=== PATIENT | female | born 1940 | race Caucasian/White ===

== ENCOUNTER 2021-01-22 11:15 | Outpatient (RCR) | payer MEDICARE, SELFPAY ==
[2021-01-08 10:17] VITALS: BP 136/76; PULSE 98; TEMP 36.5
--- NOTE | 2021-01-08 16:52 | PCM.WC.HP ---
History of Present Illness Date of Service: 01/08/21 Chief Complaint: Right Lower Extremity Ulcers History of Wound: Ms. Kwong is a 80 yo who was referred to the wound center by her clinical project leader due to nonhealing right lower extremity ulcers. Initially noted in August, denies any known precipitating factor however, has had problematic right lower extremity swelling for months. Was given a prescription for compression stockings however has had difficulty wearing it. She states that she has been applying antibiotic ointment to the ulcers otherwise has left it open to air. History of diabetes mellitus which is said to be well controlled. She feels well otherwise and denies chills, fever, nausea, vomiting or change in bowel habit. [facility] Medical History (Updated 01/08/21 @ 17:[address] Alissa Hardin MD) Edema of right lower extremity Type 2 diabetes mellitus Ulcer of right lower extremity with fat layer exposed Home Medications Eliquis 5 BID 01/08/21 [History Last Taken Unknown] Potassium-99 BID 01/08/21 [History Last Taken Unknown] albuterol sulfate [ProAir HFA] 1 puff INHALATION Q6H 01/08/21 [History Last Taken Unknown] allopurinol 300 mg PO DAILY 01/08/21 [History Last Taken Unknown] budesonide-formoterol [Symbicort] 2 puff INHALATION BID 01/08/21 [History Last Taken Unknown] diclofenac sodium-menthol NOTE Q6H 01/08/21 [History Last Taken Unknown] doxycycline monohydrate 100 mg PO BID 01/08/21 [History Last Taken Unknown] gabapentin 600 mg PO DAILY 01/08/21 [History Last Taken Unknown] glipizide-metformin 1 tab PO DAILY 01/08/21 [History Last Taken Unknown] levothyroxine 200 mcg PO DAILY 01/08/21 [History Last Taken Unknown] torsemide TID 01/08/21 [History Last Taken Unknown] Allergy/AdvReac Type Severity Reaction Status Date / Time acetaminophen [From Vicodin] Allergy Other Verified 01/08/21 11:56 codeine Allergy Vomiting Verified 01/08/21 11:49 heparin Allergy Hives Verified 01/08/21 11:51 hydrocodone [From Vicodin] Allergy Other Verified 01/08/21 11:56 Penicillins Allergy Hives Verified 01/08/21 11:50 Sulfa (Sulfonamide Allergy Itching Verified 01/08/21 11:47 Antibiotics) ROS Constitutional Constitutional: Denies body ache(s), change in weight, fatigue, fever(s) or frequent falls Eyes Eyes: Denies blindness, bloody eye, blurry vision, change in eye color or change in vision ENT HEENT: Denies bleeding gums, change in voice, dental pain, dysphagia, ear discharge or ear pain Cardiovascular Cardiovascular: Denies abdominal bloating, abdominal edema, abdominal pain, chest pain with activity or dyspnea at rest Respiratory/Chest Respiratory/Chest: Denies change in mental status, change in phlegm color, chest congestion, difficulty clearing secretions, hemoptysis or hoarseness Gastrointestinal Gastrointestinal: Denies abdominal pain, anorexia, belching, bloating, change in bowel habits or chewing difficulty Genitourinary Genitourinary: Denies abdominal discomfort, burning urination, dribbling or dysuria Musculoskeletal Musculoskeletal: Denies deformity, difficulty walking, joint stiffness, muscle spasms or muscle weakness Integumentary Integumentary: Denies change in hair, change in pigmentation, erythema, furuncle, hirsutism, jaundice or lesions Neurologic Neurologic: Denies abnormal hearing, abnormal movements, abnormal speech, burning sensations or confusion Psychiatric Psychiatric: Denies anxiety, auditory hallucinations, difficulty concentrating, hallucinations, homicidal ideation or hopelessness Endocrine Endocrinology: Denies excessive sweating, fatigue, flushing, heat intolerance, increase in ring/shoe/hat size or palpitations Hematologic/Lymphatic Hematologic/Lymphatic: Denies anemia, easy bleeding, easy bruising or lymphadenopathy Allergic/Immunologic Allergic/Immunologic: Denies tongue swelling, hives, urticaria, eczemia or wheezing Vital Signs Vital Signs Vital Signs: 01/08/21 10:17 Temperature 97.7 F L Temperature Source Temporal Pulse Rate 98 Blood Pressure 136/76 H Blood Pressure Mean 96 Blood Pressure Source Monitor Blood Pressure Position Semi-Fowlers Blood Pressure Location Left Arm Physical Exam Const alert, oriented x3 and no apparent distress General Appearance: cooperative and comfortable HEENT normocephalic and head/scalp atraumatic Neck full ROM and supple General: normal visual inspection Resp normal respiratory effort Effort and Inspection: able to speak in complete sentences Skin Wounds: wounds noted Neuro oriented x3 and CN's II-XII intact bilaterally Sensorium / Orientation: awake, alert and oriented to person Psych mental status grossly normal Appearance: grossly normal Attitude: calm Activity / Motor Behavior: appropriate eye contact Debridement Note Debridement Note Post-Debridement Measurements and Additional Note: Post-Debridement Measurements/Treatment - Nurse 1 - General Ulcer Assessment Start: 01/08/21 09:55 Freq: Status: Active Protocol: ROSE Activity Type Activity Date Activity User E-Sign Co-Sign Detail Recorded Client Recorded Date Recorded By Document 01/08/21 10:17 GABRIELA [id number] 01/08/21 10:36 GABRIELA 01/08/21 10:17 - Today's Visit Information Type of service Initial Visit Arrival Mode Wheelchair Patient Identification Verified (Name & Yes ) Vital Signs Temperature (97.8 F-99.1 F) 97.7 F L Temperature Source Temporal Pulse Rate (60-100) 98 Pulse Location Monitor Blood Pressure (90/60-120/80) 136/76 H Blood Pressure Mean 96 Source Monitor Position Semi-Fowlers Blood Pressure Location Left Arm History Since Last Visit- (Skip if this is Patient's initial visit) Have you changed medications since your No last visit? Any new allergies or adverse reactions No Had a fall/change in ADL's that may No increase risk of falls Signs or symptoms of abuse and/or No neglect since last visit Have you been in the hospital since your No last visit? Has dressing in place as prescribed No Has compression in place as prescribed N/A Has offloadiing in place as prescribed N/A Experienced any changes in pain level or No management Left Footwear Regular Shoe Right Footwear Regular Shoe Pain Scale: 0-10 Numeric Is Patient Pain Free? Yes - Nurse 1 - General Ulcer Measurement Start: 01/08/21 09:55 Freq: Status: Active Protocol: Activity Type Activity Date Activity User E-Sign Co-Sign Detail Recorded Client Recorded Date Recorded By Document 01/08/21 10:17 KR [id number] 01/08/21 10:36 GABRIELA 01/08/21 10:17 Wound Center Nurse 1 #3 R Calf -Current Size (cm) - Length 1.8 -Current Size (cm) - Width 1.4 -Current Size (cm) - Depth 0.1 -Total Square Cm 2.52 -Exudate Amt Small -Exudate Type Serosanguineous -Wound Margin Distinct, Outline Attached -Granulation Amt None Present (0 %) -Necrosis Amt Small (1-33%) -Necrotic Tissue Type Adherent Slough -Texture (Richelle-wound Skin Appearance) Assessed, Scarring -Moisture (Richelle-wound Skin Appearance) No Abnormality, Assessed, Maceration -Color (Richelle-wound Skin Appearance) No Abnormality, Assessed -Temperature (Richelle-wound Skin No Abnormality Appearance) (Pt Warm) -Tenderness on Palpation (Richelle-wound No Skin Appearance) -Ulcer Cleansing Rinsed/ Irrigated with Saline -Foul Odor after Cleansing No -Anesthetic Used 5% Lidocaine Gel #2 R medial LE -Current Size (cm) - Length 5.8 -Current Size (cm) - Width 1.9 -Current Size (cm) - Depth 0.1 -Total Square Cm 11.02 -Exudate Amt Small -Exudate Type Serosanguineous -Wound Margin Distinct, Outline Attached -Necrosis Amt Large (67-100%) -Necrotic Tissue Type Adherent Slough -Texture (Richelle-wound Skin Appearance) Assessed, Scarring -Moisture (Richelle-wound Skin Appearance) No Abnormality, Assessed -Color (Richelle-wound Skin Appearance) No Abnormality, Assessed -Temperature (Richelle-wound Skin No Abnormality Appearance) (Pt Warm) -Tenderness on Palpation (Richelle-wound No Skin Appearance) -Ulcer Cleansing Rinsed/ Irrigated with Saline -Foul Odor after Cleansing No -Anesthetic Used 5% Lidocaine Gel #1 R Ankle -Current Size (cm) - Length 1.7 -Current Size (cm) - Width 1 -Current Size (cm) - Depth 0.1 -Total Square Cm 1.7 -Exudate Amt Small -Exudate Type Yellow/Green -Wound Margin Distinct, Outline Attached -Granulation Amt None Present (0 %) -Necrosis Amt Small (1-33%) -Necrotic Tissue Type Adherent Slough -Texture (Richelle-wound Skin Appearance) Assessed, Localized Edema ,Scarring -Moisture (Richelle-wound Skin Appearance) No Abnormality, Assessed -Color (Richelle-wound Skin Appearance) No Abnormality, Assessed -Temperature (Richelle-wound Skin No Abnormality Appearance) (Pt Warm) -Tenderness on Palpation (Richelle-wound No Skin Appearance) -Ulcer Cleansing Rinsed/ Irrigated with Saline -Foul Odor after Cleansing No -Anesthetic Used 5% Lidocaine Gel Right Calf (cm) 53 Right Ankle (cm) 32 Left Calf (cm) 46 Left Ankle (cm) 28 WC - Nurse 2 - General Ulcer CM Notes Start: 01/08/21 09:55 Freq: Status: Active Protocol: Activity Type Activity Date Activity User E-Sign Co-Sign Detail Recorded Client Recorded Date Recorded By Document 01/08/21 11:07 MW [id number] 01/08/21 11:20 MW 01/08/21 11:07 Wound Center Nurse 2 #3 R Calf -Time 11:08 -Correct Patient Yes -Correct Side, Site, Position Yes -Correct Procedure Yes -Procedure Performed Yes -Type of Procedure Debridement -Clinical Debridement Subcutaneous -Tissue Removed Subcutaneous -Post Debridement (cm) - Length 2.0 -Post Debridement (cm) - Width 1.3 -Post Debridement (cm) - Depth 0.1 -Total Square (Post) (cm) 2.60 -Area of Debridement (cm) - Length 2.0 -Area of Debridement (cm) - Width 1.3 -Total Square (Area) (cm) 2.60 -Tunneling No -Undermining/Tunneling No -Circular Undermining No -Wound/Ulcer Outcome Not Healed -Ulcer Cleansing Rinsed/ Irrigated with Saline -Foul Odor after Cleansing No -Bioengineered Tissue No -Bleeding Controlled with Pressure -Offloading No -Treatment Response Procedure Tolerated Well -Debridement - Subq, 1st 20sq cm Yes #2 R medial LE -Time 11:09 -Correct Patient Yes -Correct Side, Site, Position Yes -Correct Procedure Yes -Procedure Performed Yes -Type of Procedure Debridement -Clinical Debridement Subcutaneous -Tissue Removed Subcutaneous -Post Debridement (cm) - Length 6.0 -Post Debridement (cm) - Width 3.0 -Post Debridement (cm) - Depth 0.1 -Total Square (Post) (cm) 18.00 -Area of Debridement (cm) - Length 6.0 -Area of Debridement (cm) - Width 3.0 -Total Square (Area) (cm) 18.00 -Tunneling No -Undermining/Tunneling No -Circular Undermining No -Wound/Ulcer Outcome Not Healed -Ulcer Cleansing Rinsed/ Irrigated with Saline -Foul Odor after Cleansing No -Bioengineered Tissue No -Bleeding Controlled with Pressure -Offloading No -Treatment Response Procedure Tolerated Well -Debridement - Subq, 1st 20sq cm No #1 R Ankle -Time 11:09 -Correct Patient Yes -Correct Side, Site, Position Yes -Correct Procedure Yes -Procedure Performed Yes -Type of Procedure Debridement -Clinical Debridement Subcutaneous -Tissue Removed Subcutaneous -Post Debridement (cm) - Length 1.0 -Post Debridement (cm) - Width 0.8 -Post Debridement (cm) - Depth 0.1 -Total Square (Post) (cm) 0.80 -Area of Debridement (cm) - Length 1.0 -Area of Debridement (cm) - Width 0.8 -Total Square (Area) (cm) 0.80 -Tunneling No -Undermining/Tunneling No -Circular Undermining No -Wound/Ulcer Outcome Not Healed -Ulcer Cleansing Rinsed/ Irrigated with Saline -Foul Odor after Cleansing No -Bioengineered Tissue No -Bleeding Controlled with Pressure -Offloading No -Treatment Response Procedure Tolerated Well -Debridement - Subq, 1st 20sq cm No Pain Scale: 0-10 Numeric Is Patient Pain Free? Yes - Nurse 3 - General Ulcer D/C NN Start: 01/08/21 09:55 Freq: Status: Active Protocol: Activity Type Activity Date Activity User E-Sign Co-Sign Detail Recorded Client Recorded Date Recorded By Document 01/08/21 11:24 DL [id number] 01/08/21 11:34 DL 01/08/21 11:24 Wound Care Nurse 3 #3 R Calf -Ulcer Cleansing Rinsed/ Irrigated with Saline -Foul Odor after Cleansing No -Primary Dressing Applied Aquacel AG 4x4 -Primary Dressing Covered/Secured with Dry Gauze, Secured with Tape -Aquacel AG 4x4 1 #2 R medial LE -Ulcer Cleansing Rinsed/ Irrigated with Saline -Primary Dressing Covered/Secured with Dry Gauze, Secured with Tape #1 R Ankle -Ulcer Cleansing Rinsed/ Irrigated with Saline -Primary Dressing Covered/Secured with Dry Gauze, Secured with Tape Right -Tubular Bandage Double Layer -Size of Tubigrip Used Size F -Size F ($) 2 Pain Scale: 0-10 Numeric Is Patient Pain Free? Yes WC - Visit Discharge Discharge Condition Stable Ambulatory Status Wheelchair Transportation Private Auto Accompanied by Wound debrided: Rught ankle ( Lateral ) Anesthesia Used: 5% Lidocaine Gel Depth: Down to and including healthy tissue and in the subcutaneous layer Percentage of wound debrided: 100 Instrument Used: 5mm curette Tissue Removed: Slough and devitalized tissue Severity: Fat Layer Exposed Amount of bleeding with debridement: Mild Bleeding Controlled with: Pressure Patient tolerated procedure: Patient tolerated procedure well Additional Wound Wound debrided: Right lower extremity ( Cluster ) Type of Debridement: Excisional debridement Anesthesia Used: 5% Lidocaine Gel Depth: Down to and including healthy tissue and in the subcutaneous layer Percentage of wound debrided: 100 Instrument Used: 5mm curette Tissue Removed: Slough and devitalized tissue Severity: Fat Layer Exposed Amount of bleeding with debridement: Mild Bleeding Controlled with: Pressure Patient tolerated procedure: Patient tolerated procedure well Additional Wound Wound debrided: Right lower extremity ( Posterior ) Type of Debridement: Excisional debridement Anesthesia Used: 5% Lidocaine Gel Depth: Down to and including healthy tissue and in the subcutaneous layer Percentage of wound debrided: 100 Instrument Used: 5mm curette Tissue Removed: Slough and devitalized tissue Severity: Fat Layer Exposed Amount of bleeding with debridement: Mild Bleeding Controlled with: Pressure Patient tolerated procedure: Patient tolerated procedure well Lab / Micro Data Micro: Microbiology 01/08/21 11:15 Wound Abcess - Leg, Right Gram Stain - Final Charges/Coding Visit Charges Office Visits / Consults: [id number] OV L4 New Procedures Integumentary [id number]: [id number] Marie subq tissue 20 sq cm/< Assessment/Plan Assessment/Plan (1) Ulcer of right lower extremity with fat layer exposed: CODE(S): L97.912 - Non-pressure chronic ulcer of unspecified part of right lower leg with fat layer exposed (2) Edema of right lower extremity: CODE(S): R60.0 - Localized edema (3) Type 2 diabetes mellitus: CODE(S): E11.9 - Type 2 diabetes mellitus without complications PLAN: 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 Right lower extremity edema as well. Evidence of stasis dermatitis. Debridement done as documented above, procedure was well-tolerated. Cultures taken. She states that her blood glucose readings have been within normal. Reports compliance with her diabetes management/medication. Aquacel extra daily with Adaptic over top. Double layer Tubigrip for edema management. Elevate lower extremities when seated and in bed. Optimal diabetes control again recommended. Increase intake of protein rich foods, vitamin C and zinc. Recently had venous studies, will request records. Her questions were answered and she was advised to call with any further questions or concerns. This note was generated with [employer] software. It may contain incorrect words, spelling, and punctuation that were not noted in checking the note before signing.
[2021-01-15 11:18] VITALS: BP 89/63; PULSE 68; RESP 22; TEMP 36.2
--- NOTE | 2021-01-15 13:32 | PN.PCM_ITS ---
History of Present Illness Date of Service: 01/15/21 Chief Complaint: Right Lower Extremity Ulcers History of Wound: Ms. Kwong is a 80 yo who was referred to the wound center by her gatekeeper due to nonhealing right lower extremity ulcers. Initially noted in August, denies any known precipitating factor however, has had problematic right lower extremity swelling for months. Was given a prescription for compression stockings however has had difficulty wearing it. She states that she has been applying antibiotic ointment to the ulcers otherwise has left it open to air. History of diabetes mellitus which is said to be well controlled. She feels well otherwise and denies chills, fever, nausea, vomiting or change in bowel habit. Subjective Subjective No new concerns at this time. Improving ulcers. Objective Data Objective Data Vital Signs: Vital Signs Temp Pulse Resp BP 97.2 F L 68 22 H 89/63 L 01/15/21 11:18 01/15/21 11:18 01/15/21 11:18 01/15/21 11:18 Lab / Micro Data Micro: Microbiology 01/08/21 11:15 Wound Abcess - Leg, Right Gram Stain - Final 01/08/21 11:15 Wound Abcess - Leg, Right Wound Culture - Final Staphylococcus epidermidis 01/08/21 11:15 Wound Abcess - Leg, Right Anaerobic Culture - Final No anaerobic bacteria isolated. Charges/Coding Procedures Integumentary [id number]: [id number] Marie subq tissue 20 sq cm/< Add On Codes: [id number] Marie subq tissue add-on Physical Exam Const alert, oriented x3 and no apparent distress General Appearance: cooperative and comfortable HEENT normocephalic and head/scalp atraumatic Neck full ROM and supple General: normal visual inspection Resp normal respiratory effort Effort and Inspection: able to speak in complete sentences Skin Wounds: wounds noted Neuro oriented x3 and CN's II-XII intact bilaterally Sensorium / Orientation: awake, alert and oriented to person Psych mental status grossly normal Appearance: grossly normal Attitude: calm Activity / Motor Behavior: appropriate eye contact Debridement Note Debridement Note Post-Debridement Measurements and Additional Note: Post-Debridement Measurements/Treatment ONESIMO - Nurse 1 - General Ulcer Assessment Start: 01/08/21 09:55 Freq: Status: Active Protocol: ROSE Activity Type Activity Date Activity User E-Sign Co-Sign Detail Recorded Client Recorded Date Recorded By Document 01/08/21 10:17 KR [id number] 01/08/21 10:36 KR Document 01/15/21 11:18 ML [id number] 01/15/21 11:19 ML 01/08/21 01/15/21 10:17 11:18 - Today's Visit Information Type of service Initial Visit Follow-up Visit (Physician/CHILD WELFARE SOCIAL WORKER ) Arrival Mode Wheelchair Wheelchair Patient Identification Verified (Name & Yes Yes ) Patient Requires Transmission-Based No Precautions Safety Precautions NA Vital Signs Temperature (97.8 F-99.1 F) 97.7 F L 97.2 F L Temperature Source Temporal Temporal Pulse Rate (60-100) 98 68 Pulse Location Monitor Monitor Respiratory Rate (12-18) 22 H Respiratory rate source Observation Blood Pressure (90/60-120/80) 136/76 H 89/63 L Blood Pressure Mean (mm Hg) 96 71 Source Monitor Monitor Position Semi-Fowlers Sitting Blood Pressure Location Left Arm Left Arm History Since Last Visit- (Skip if this is Patient's initial visit) Have you changed medications since your No No last visit? Any new allergies or adverse reactions No No Had a fall/change in ADL's that may No No increase risk of falls Signs or symptoms of abuse and/or No No neglect since last visit Have you been in the hospital since your No No last visit? Has dressing in place as prescribed No Yes Has compression in place as prescribed N/A Yes Has offloadiing in place as prescribed N/A N/A Experienced any changes in pain level or No No management Left Footwear Regular Shoe Regular Shoe Right Footwear Regular Shoe Regular Shoe Pain Scale: 0-10 Numeric Is Patient Pain Free? Yes Yes - Nurse 1 - General Ulcer Measurement Start: 01/08/21 09:55 Freq: Status: Active Protocol: Activity Type Activity Date Activity User E-Sign Co-Sign Detail Recorded Client Recorded Date Recorded By Document 01/08/21 10:17 KR [id number] 01/08/21 10:36 KR Document 01/15/21 11:10 ML [id number] 01/15/21 11:14 ML 01/08/21 01/15/21 10:17 11:10 Wound Center Nurse 1 #3 R Calf -Current Size (cm) - Length 1.8 0.3 -Current Size (cm) - Width 1.4 0.2 -Current Size (cm) - Depth 0.1 0.1 -Total Square Cm 2.52 0.06 -Exudate Amt Small -Exudate Type Serosanguineous Purulent -Wound Margin Distinct, Distinct, Outline Outline Attached Attached -Granulation Amt None Present (0 Medium (34-66%) %) -Slough/Fibrin Yes -Necrosis Amt Small (1-33%) Medium (34-66%) -Necrotic Tissue Type Adherent Slough Adherent Slough -Texture (Richelle-wound Skin Appearance) Assessed, Assessed Scarring -Moisture (Richelle-wound Skin Appearance) No Abnormality, Assessed, Maceration -Color (Richelle-wound Skin Appearance) No Abnormality, Assessed Assessed -Temperature (Richelle-wound Skin No Abnormality No Abnormality Appearance) (Pt Warm) (Pt Warm) -Tenderness on Palpation (Richelle-wound No Yes Skin Appearance) -Ulcer Cleansing Rinsed/ Wound Cleanser Irrigated with Saline -Foul Odor after Cleansing No No -Anesthetic Used 5% Lidocaine 5% Lidocaine Gel Gel #2 R medial LE -Current Size (cm) - Length 5.8 4.1 -Current Size (cm) - Width 1.9 1.4 -Current Size (cm) - Depth 0.1 0.1 -Total Square Cm 11.02 5.74 -Epithelialization Medium 34-66% -Exudate Amt Small Medium -Exudate Type Serosanguineous Serosanguineous -Wound Margin Distinct, Distinct, Outline Outline Attached Attached -Granulation Amt Medium (34-66%) -Slough/Fibrin Yes -Necrosis Amt Large (67-100%) Medium (34-66%) -Necrotic Tissue Type Adherent Slough Adherent Slough -Texture (Richelle-wound Skin Appearance) Assessed, Assessed Scarring -Moisture (Richelle-wound Skin Appearance) No Abnormality, Assessed Assessed -Color (Richelle-wound Skin Appearance) No Abnormality, Assessed Assessed -Temperature (Richelle-wound Skin No Abnormality No Abnormality Appearance) (Pt Warm) (Pt Warm) -Tenderness on Palpation (Richelle-wound No No Skin Appearance) -Ulcer Cleansing Rinsed/ Wound Cleanser Irrigated with Saline -Foul Odor after Cleansing No No -Anesthetic Used 5% Lidocaine 5% Lidocaine Gel Gel #1 R Ankle -Current Size (cm) - Length 1.7 0.5 -Current Size (cm) - Width 1 0.4 -Current Size (cm) - Depth 0.1 0.1 -Total Square Cm 1.7 0.20 -Epithelialization Medium 34-66% -Exudate Amt Small Medium -Exudate Type Yellow/Green Serosanguineous -Wound Margin Distinct, Distinct, Outline Outline Attached Attached -Granulation Amt None Present (0 Medium (34-66%) %) -Slough/Fibrin Yes -Necrosis Amt Small (1-33%) Medium (34-66%) -Necrotic Tissue Type Adherent Slough Adherent Slough -Texture (Richelle-wound Skin Appearance) Assessed, Assessed Localized Edema ,Scarring -Moisture (Richelle-wound Skin Appearance) No Abnormality, Assessed Assessed -Color (Richelle-wound Skin Appearance) No Abnormality, Assessed Assessed -Temperature (Richelle-wound Skin No Abnormality No Abnormality Appearance) (Pt Warm) (Pt Warm) -Tenderness on Palpation (Richelle-wound No No Skin Appearance) -Ulcer Cleansing Rinsed/ Wound Cleanser Irrigated with Saline -Foul Odor after Cleansing No No -Anesthetic Used 5% Lidocaine 5% Lidocaine Gel Gel Right Calf (cm) 53 Right Ankle (cm) 32 Left Calf (cm) 46 Left Ankle (cm) 28 WC - Nurse 2 - General Ulcer CM Notes Start: 01/08/21 09:55 Freq: Status: Active Protocol: Activity Type Activity Date Activity User E-Sign Co-Sign Detail Recorded Client Recorded Date Recorded By Document 01/08/21 11:07 MW [id number] 01/08/21 11:20 MW Edit Result 01/08/21 11:07 MW (1) [id number] 01/09/21 07:09 PL Document 01/15/21 11:30 MW [id number] 01/15/21 11:39 MW (1) #3 R Calf - Debridement, SubQ, ea addt'l 20sq cm => 1 or part thereof 01/08/21 01/15/21 11:07 11:30 Wound Center Nurse 2 #3 R Calf -Time 11:08 11:31 -Correct Patient Yes Yes -Correct Side, Site, Position Yes Yes -Correct Procedure Yes Yes -Procedure Performed Yes Yes -Type of Procedure Debridement Debridement -Clinical Debridement Subcutaneous Subcutaneous -Tissue Removed Subcutaneous Subcutaneous -Post Debridement (cm) - Length 2.0 2.0 -Post Debridement (cm) - Width 1.3 1.1 -Post Debridement (cm) - Depth 0.1 0.1 -Total Square (Post) (cm) 2.60 2.20 -Area of Debridement (cm) - Length 2.0 2.0 -Area of Debridement (cm) - Width 1.3 1.1 -Total Square (Area) (cm) 2.60 2.20 -Tunneling No No -Undermining/Tunneling No No -Circular Undermining No No -Wound/Ulcer Outcome Not Healed Not Healed -Ulcer Cleansing Rinsed/ Rinsed/ Irrigated with Irrigated with Saline Saline -Foul Odor after Cleansing No No -Bioengineered Tissue No No -Bleeding Controlled with Pressure Pressure -Offloading No No -Treatment Response Procedure Procedure Tolerated Well Tolerated Well -Debridement - Subq, 1st 20sq cm Yes Yes -Debridement, SubQ, ea addt'l 20sq cm 1 or part thereof #2 R medial LE -Time 11: 11:32 -Correct Patient Yes Yes -Correct Side, Site, Position Yes Yes -Correct Procedure Yes Yes -Procedure Performed Yes Yes -Type of Procedure Debridement Debridement -Clinical Debridement Subcutaneous Subcutaneous -Tissue Removed Subcutaneous Subcutaneous -Post Debridement (cm) - Length 6.0 5.4 -Post Debridement (cm) - Width 3.0 2.5 -Post Debridement (cm) - Depth 0.1 0.1 -Total Square (Post) (cm) 18.00 13.50 -Area of Debridement (cm) - Length 6.0 5.4 -Area of Debridement (cm) - Width 3.0 2.5 -Total Square (Area) (cm) 18.00 13.50 -Tunneling No No -Undermining/Tunneling No No -Circular Undermining No No -Wound/Ulcer Outcome Not Healed Not Healed -Ulcer Cleansing Rinsed/ Rinsed/ Irrigated with Irrigated with Saline Saline -Foul Odor after Cleansing No No -Bioengineered Tissue No No -Bleeding Controlled with Pressure Pressure -Offloading No No -Treatment Response Procedure Procedure Tolerated Well Tolerated Well -Debridement - Subq, 1st 20sq cm No Yes #1 R Ankle -Time 11: 11:35 -Correct Patient Yes Yes -Correct Side, Site, Position Yes Yes -Correct Procedure Yes Yes -Procedure Performed Yes Yes -Type of Procedure Debridement Debridement -Clinical Debridement Subcutaneous Subcutaneous -Tissue Removed Subcutaneous Subcutaneous -Post Debridement (cm) - Length 1.0 0.6 -Post Debridement (cm) - Width 0.8 0.7 -Post Debridement (cm) - Depth 0.1 0.1 -Total Square (Post) (cm) 0.80 0.42 -Area of Debridement (cm) - Length 1.0 0.6 -Area of Debridement (cm) - Width 0.8 0.7 -Total Square (Area) (cm) 0.80 0.42 -Tunneling No No -Undermining/Tunneling No No -Circular Undermining No No -Wound/Ulcer Outcome Not Healed Not Healed -Ulcer Cleansing Rinsed/ Rinsed/ Irrigated with Irrigated with Saline Saline -Foul Odor after Cleansing No No -Bioengineered Tissue No No -Bleeding Controlled with Pressure Pressure -Offloading No No -Treatment Response Procedure Procedure Tolerated Well Tolerated Well -Debridement - Subq, 1st 20sq cm No No Pain Scale: 0-10 Numeric Is Patient Pain Free? Yes Yes WC - Nurse 3 - General Ulcer D/C NN Start: 01/08/21 09:55 Freq: Status: Active Protocol: Activity Type Activity Date Activity User E-Sign Co-Sign Detail Recorded Client Recorded Date Recorded By Document 01/08/21 11:24 DL [id number] 01/08/21 11:34 DL Document 01/15/21 11:45 DL [id number] 01/15/21 11:50 DL 01/08/21 01/15/21 11:24 11:45 Wound Care Nurse 3 #3 R Calf -Ulcer Cleansing Rinsed/ Rinsed/ Irrigated with Irrigated with Saline Saline -Foul Odor after Cleansing No No -Primary Dressing Applied Aquacel AG 4x4 Aquacel AG 4x4, NonAdherent Contact Layer -Primary Dressing Covered/Secured with Dry Gauze, Dry Gauze & Secured with Roll Gauze, Tape Secured with Tape -Aquacel AG 4x4 1 1 #2 R medial LE -Ulcer Cleansing Rinsed/ Rinsed/ Irrigated with Irrigated with Saline Saline -Foul Odor after Cleansing No -Primary Dressing Applied NonAdherent Contact Layer -Other Dressing aquacel ag -Primary Dressing Covered/Secured with Dry Gauze, Dry Gauze & Secured with Roll Gauze, Tape Secured with Tape #1 R Ankle -Ulcer Cleansing Rinsed/ Rinsed/ Irrigated with Irrigated with Saline Saline -Foul Odor after Cleansing No -Primary Dressing Applied NonAdherent Contact Layer -Other Dressing aquacel ag -Primary Dressing Covered/Secured with Dry Gauze, Dry Gauze & Secured with Roll Gauze, Tape Secured with Tape Right -Tubular Bandage Double Layer Double Layer -Size of Tubigrip Used Size F Size F -Size F ($) 2 1 -Stockings Yes Treatment Response Procedure Tolerated Well Pain Scale: 0-10 Numeric Is Patient Pain Free? Yes Yes WC - Visit Discharge Discharge Condition Stable Stable Ambulatory Status Wheelchair Wheelchair Transportation Private Auto Private Auto Accompanied by Wound debrided: Right Medial Lower Extremity ( Cluster ) Type of Debridement: Excisional debridement Anesthesia Used: 4% Lidocaine Solution Depth: Down to and including healthy tissue and in the subcutaneous layer Percentage of wound debrided: 100 Instrument Used: 5mm curette Tissue Removed: Slough and devitalized tissue Severity: Fat Layer Exposed Amount of bleeding with debridement: Mild Bleeding Controlled with: Pressure Patient tolerated procedure: Patient tolerated procedure well Additional Wound Wound debrided: Right lower extremity ankle Type of Debridement: Excisional debridement Anesthesia Used: 4% Lidocaine Solution and 5% Lidocaine Gel Depth: Down to and including healthy tissue and in the subcutaneous layer Percentage of wound debrided: 100 Instrument Used: 5mm curette Tissue Removed: Slough and devitalized tissue Severity: Fat Layer Exposed Amount of bleeding with debridement: Mild Bleeding Controlled with: Pressure Patient tolerated procedure: Patient tolerated procedure well Additional Wound Wound debrided: Right Lower Extremity ( Posterior ) Type of Debridement: Excisional debridement Anesthesia Used: 4% Lidocaine Solution and 5% Lidocaine Gel Depth: Down to and including healthy tissue and in the subcutaneous layer Percentage of wound debrided: 100 Instrument Used: 5mm curette Tissue Removed: Slough and devitalized tissue Severity: Fat Layer Exposed Amount of bleeding with debridement: Mild Bleeding Controlled with: Pressure Patient tolerated procedure: Patient tolerated procedure well Assessment/Plan Assessment/Plan (1) Ulcer of right lower extremity with fat layer exposed: CODE(S): L97.912 - Non-pressure chronic ulcer of unspecified part of right lower leg with fat layer exposed (2) Edema of right lower extremity: CODE(S): R60.0 - Localized edema (3) Type 2 diabetes mellitus: CODE(S): E11.9 - Type 2 diabetes mellitus without complications PLAN: Improving. No new concerns at this time. Debridement done as documented above, procedure was well-tolerated. Continue Aquacel extra daily with Adaptic over top. Double layer Tubigrip for edema management. Elevate lower extremities when seated and in bed. Optimal diabetes control again recommended. Increase intake of protein rich foods, vitamin C and zinc. Recently had venous studies, will request records. Her questions were answered and she was advised to call with any further questions or concerns. This note was generated with [employer] dictation software. It may contain incorrect words, spelling, and punctuation that were not noted in checking the note before signing.
[2021-01-22 11:06] VITALS: BP 139/62; TEMP 36.8; O2SAT 95
--- NOTE | 2021-01-22 13:00 | PCM.WC.PN ---
History of Present Illness Date of Service: 01/22/21 Chief Complaint: Right Lower Extremity Ulcers History of Wound: Ms. Kwong is a 80 yo who was referred to the wound center by her teletypist due to nonhealing right lower extremity ulcers. Initially noted in August, denies any known precipitating factor however, has had problematic right lower extremity swelling for months. Was given a prescription for compression stockings however has had difficulty wearing it. She states that she has been applying antibiotic ointment to the ulcers otherwise has left it open to air. History of diabetes mellitus which is said to be well controlled. She feels well otherwise and denies chills, fever, nausea, vomiting or change in bowel habit. Subjective Subjective No new concerns at this time. Improving ulcers. Objective Data Objective Data Vital Signs: Vital Signs Temp Pulse Resp BP Pulse Ox 98.2 F 68 22 H 139/62 H 95 01/22/21 11:06 01/15/21 11:18 01/15/21 11:18 01/22/21 11:06 01/22/21 11:06 Oxygen Delivery Method Room Air Lab / Micro Data Micro: Microbiology 01/08/21 11:15 Wound Abcess - Leg, Right Gram Stain - Final 01/08/21 11:15 Wound Abcess - Leg, Right Wound Culture - Final Staphylococcus epidermidis 01/08/21 11:15 Wound Abcess - Leg, Right Anaerobic Culture - Final No anaerobic bacteria isolated. Charges/Coding Procedures Integumentary [id number]: [id number] Marie subq tissue 20 sq cm/< Physical Exam Const alert, oriented x3 and no apparent distress General Appearance: cooperative and comfortable HEENT normocephalic and head/scalp atraumatic Neck full ROM and supple General: normal visual inspection Resp normal respiratory effort Effort and Inspection: able to speak in complete sentences Skin Wounds: wounds noted Neuro oriented x3 and CN's II-XII intact bilaterally Sensorium / Orientation: awake, alert and oriented to person Psych mental status grossly normal Appearance: grossly normal Attitude: calm Activity / Motor Behavior: appropriate eye contact Debridement Note Debridement Note Post-Debridement Measurements and Additional Note: Post-Debridement Measurements/Treatment ONESIMO - Nurse 1 - General Ulcer Assessment Start: 01/08/21 09:55 Freq: Status: Active Protocol: ROSE Activity Type Activity Date Activity User E-Sign Co-Sign Detail Recorded Client Recorded Date Recorded By Document 01/08/21 10:17 KR [id number] 01/08/21 10:36 KR Document 01/15/21 11:18 ML [id number] 01/15/21 11:19 ML Document 01/22/21 11:06 AK [id number] 01/22/21 11:18 AK 01/08/21 01/15/21 01/22/21 10:17 11:18 11:06 - Today's Visit Information Type of service Initial Visit Follow-up Visit Follow-up Visit (Physician/[facility]PER[facility] [employer] [facility] (Physician/[facility]PER[facility] ) ) Arrival Mode Wheelchair Wheelchair Cane,Wheelchair Patient Identification Verified (Name & Yes Yes Yes ) Patient Requires Transmission-Based No No Precautions Safety Precautions NA NA Finger Stick Blood Sugar(mg/dl) (if 118 indicated): Blood Sugar Stated by Patient Vital Signs Temperature (97.8 F-99.1 F) 97.7 F L 97.2 F L 98.2 F Temperature Source Temporal Temporal Temporal Pulse Rate (60-100) 98 68 Pulse Location Monitor Monitor Respiratory Rate (12-18) 22 H Respiratory rate source Observation Pulse Oximetry 95 Oxygen Delivery Method Room Air Blood Pressure (90/60-120/80) 136/76 H 89/63 L 139/62 H Blood Pressure Mean (mm Hg) 96 71 87 Source Monitor Monitor Monitor Position Semi-Fowlers Sitting Blood Pressure Location Left Arm Left Arm History Since Last Visit- (Skip if this is Patient's initial visit) Have you changed medications since your No No No last visit? Any new allergies or adverse reactions No No No Had a fall/change in ADL's that may No No No increase risk of falls Signs or symptoms of abuse and/or No No No neglect since last visit Have you been in the hospital since your No No No last visit? Has dressing in place as prescribed No Yes Yes Has compression in place as prescribed N/A Yes Yes Has offloadiing in place as prescribed N/A N/A Experienced any changes in pain level or No No management Left Footwear Regular Shoe Regular Shoe Other Footwear (Comment) Right Footwear Regular Shoe Regular Shoe Other Footwear (Comment) Other Footwear flip flop Pain Scale: 0-10 Numeric Is Patient Pain Free? Yes Yes Yes - Nurse 1 - General Ulcer Measurement Start: 01/08/21 09:55 Freq: Status: Active Protocol: Activity Type Activity Date Activity User E-Sign Co-Sign Detail Recorded Client Recorded Date Recorded By Document 01/08/21 10:17 KR [id number] 01/08/21 10:36 KR Document 01/15/21 11:10 ML [id number] 01/15/21 11:14 ML Document 01/22/21 11:06 AK [id number] 01/22/21 11:18 AK 01/08/21 01/15/21 01/22/21 10:17 11:10 11:06 Wound Center Nurse 1 #3 R Calf -Current Size (cm) - Length 1.8 0.3 0.8 -Current Size (cm) - Width 1.4 0.2 0.7 -Current Size (cm) - Depth 0.1 0.1 0.1 -Total Square Cm 2.52 0.06 0.56 -Tunneling No -Undermining/Tunneling No -Exudate Amt Small None Present -Exudate Type Serosanguineous Purulent -Wound Margin Distinct, Distinct, Distinct, Outline Outline Outline Attached Attached Attached -Granulation Amt None Present (0 Medium (34-66%) %) -Slough/Fibrin Yes No -Necrosis Amt Small (1-33%) Medium (34-66%) -Necrotic Tissue Type Adherent Slough Adherent Slough -Texture (Richelle-wound Skin Appearance) Assessed, Assessed No Abnormality, Scarring Assessed -Moisture (Richelle-wound Skin Appearance) No Abnormality, No Abnormality, Assessed, Assessed Maceration -Color (Richelle-wound Skin Appearance) No Abnormality, Assessed No Abnormality, Assessed Assessed -Temperature (Richelle-wound Skin No Abnormality No Abnormality No Abnormality Appearance) (Pt Warm) (Pt Warm) (Pt Warm) -Tenderness on Palpation (Richelle-wound No Yes No Skin Appearance) -Ulcer Cleansing Rinsed/ Wound Cleanser Rinsed/ Irrigated with Irrigated with Saline Saline -Foul Odor after Cleansing No No No -Anesthetic Used 5% Lidocaine 5% Lidocaine 4% Lidocaine Gel Gel Solution,5% Lidocaine Gel #2 R medial LE -Current Size (cm) - Length 5.8 4.1 3.5 -Current Size (cm) - Width 1.9 1.4 1.5 -Current Size (cm) - Depth 0.1 0.1 0.5 -Total Square Cm 11.02 5.74 5.25 -Epithelialization Medium 34-66% Small 1-33% -Tunneling No -Undermining/Tunneling No -Exudate Amt Small Medium -Exudate Type Serosanguineous Serosanguineous -Wound Margin Distinct, Distinct, Distinct, Outline Outline Outline Attached Attached Attached -Granulation Amt Medium (34-66%) None Present (0 %) -Slough/Fibrin Yes -Necrosis Amt Large (67-100%) Medium (34-66%) -Necrotic Tissue Type Adherent Slough Adherent Slough -Texture (Richelle-wound Skin Appearance) Assessed, Assessed Scarring -Moisture (Richelle-wound Skin Appearance) No Abnormality, Assessed No Abnormality, Assessed Assessed -Color (Richelle-wound Skin Appearance) No Abnormality, Assessed No Abnormality, Assessed Assessed -Temperature (Richelle-wound Skin No Abnormality No Abnormality No Abnormality Appearance) (Pt Warm) (Pt Warm) (Pt Warm) -Tenderness on Palpation (Richelle-wound No No Skin Appearance) -Ulcer Cleansing Rinsed/ Wound Cleanser Rinsed/ Irrigated with Irrigated with Saline Saline -Foul Odor after Cleansing No No No -Anesthetic Used 5% Lidocaine 5% Lidocaine 4% Lidocaine Gel Gel Solution,5% Lidocaine Gel #1 R Ankle -Current Size (cm) - Length 1.7 0.5 0.8 -Current Size (cm) - Width 1 0.4 0.7 -Current Size (cm) - Depth 0.1 0.1 0.1 -Total Square Cm 1.7 0.20 0.56 -Epithelialization Medium 34-66% -Tunneling No -Undermining/Tunneling No -Circular Undermining No -Exudate Amt Small Medium Small -Exudate Type Yellow/Green Serosanguineous Purulent -Wound Margin Distinct, Distinct, Distinct, Outline Outline Outline Attached Attached Attached -Granulation Amt None Present (0 Medium (34-66%) %) -Slough/Fibrin Yes -Necrosis Amt Small (1-33%) Medium (34-66%) -Necrotic Tissue Type Adherent Slough Adherent Slough -Texture (Richelle-wound Skin Appearance) Assessed, Assessed Localized Edema ,Scarring -Moisture (Richelle-wound Skin Appearance) No Abnormality, Assessed No Abnormality, Assessed Assessed -Color (Richelle-wound Skin Appearance) No Abnormality, Assessed No Abnormality, Assessed Assessed -Temperature (Richelle-wound Skin No Abnormality No Abnormality No Abnormality Appearance) (Pt Warm) (Pt Warm) (Pt Warm) -Tenderness on Palpation (Richelle-wound No No Skin Appearance) -Ulcer Cleansing Rinsed/ Wound Cleanser Rinsed/ Irrigated with Irrigated with Saline Saline -Foul Odor after Cleansing No No No -Anesthetic Used 5% Lidocaine 5% Lidocaine 4% Lidocaine Gel Gel Solution,5% Lidocaine Gel Right Calf (cm) 53 52.5 Right Ankle (cm) 32 29.2 Left Calf (cm) 46 Left Ankle (cm) 28 WC - Nurse 2 - General Ulcer CM Notes Start: 01/08/21 09:55 Freq: Status: Active Protocol: Activity Type Activity Date Activity User E-Sign Co-Sign Detail Recorded Client Recorded Date Recorded By Document 01/08/21 11:07 MW [id number] 01/08/21 11:20 MW Edit Result 01/08/21 11:07 MW (1) [id number] 01/09/21 07:09 PL Document 01/15/21 11:30 MW [id number] 01/15/21 11:39 MW Document 01/22/21 11:36 MW [id number] 01/22/21 11:40 MW (1) #3 R Calf - Debridement, SubQ, ea addt'l 20sq cm => 1 or part thereof 01/08/21 01/15/21 01/22/21 11:07 11:30 11:36 Wound Center Nurse 2 #3 R Calf -Time 11:08 11:31 11:37 -Correct Patient Yes Yes Yes -Correct Side, Site, Position Yes Yes Yes -Correct Procedure Yes Yes Yes -Procedure Performed Yes Yes Yes -Type of Procedure Debridement Debridement Debridement -Clinical Debridement Subcutaneous Subcutaneous Subcutaneous -Tissue Removed Subcutaneous Subcutaneous Subcutaneous -Post Debridement (cm) - Length 2.0 2.0 0.5 -Post Debridement (cm) - Width 1.3 1.1 0.4 -Post Debridement (cm) - Depth 0.1 0.1 0.1 -Total Square (Post) (cm) 2.60 2.20 0.20 -Area of Debridement (cm) - Length 2.0 2.0 0.5 -Area of Debridement (cm) - Width 1.3 1.1 0.4 -Total Square (Area) (cm) 2.60 2.20 0.20 -Tunneling No No No -Undermining/Tunneling No No No -Circular Undermining No No No -Wound/Ulcer Outcome Not Healed Not Healed Not Healed -Ulcer Cleansing Rinsed/ Rinsed/ Rinsed/ Irrigated with Irrigated with Irrigated with Saline Saline Saline -Foul Odor after Cleansing No No No -Bioengineered Tissue No No No -Bleeding Controlled with Pressure Pressure Pressure -Offloading No No No -Treatment Response Procedure Procedure Procedure Tolerated Well Tolerated Well Tolerated Well -Debridement - Subq, 1st 20sq cm Yes Yes Yes -Debridement, SubQ, ea addt'l 20sq cm 1 or part thereof #2 R medial LE -Time 11: 11:32 11:38 -Correct Patient Yes Yes Yes -Correct Side, Site, Position Yes Yes Yes -Correct Procedure Yes Yes Yes -Procedure Performed Yes Yes Yes -Type of Procedure Debridement Debridement Debridement -Clinical Debridement Subcutaneous Subcutaneous Subcutaneous -Tissue Removed Subcutaneous Subcutaneous Subcutaneous -Post Debridement (cm) - Length 6.0 5.4 3.5 -Post Debridement (cm) - Width 3.0 2.5 1.0 -Post Debridement (cm) - Depth 0.1 0.1 0.1 -Total Square (Post) (cm) 18.00 13.50 3.50 -Area of Debridement (cm) - Length 6.0 5.4 3.5 -Area of Debridement (cm) - Width 3.0 2.5 1.0 -Total Square (Area) (cm) 18.00 13.50 3.50 -Tunneling No No No -Undermining/Tunneling No No No -Circular Undermining No No No -Wound/Ulcer Outcome Not Healed Not Healed Not Healed -Ulcer Cleansing Rinsed/ Rinsed/ Rinsed/ Irrigated with Irrigated with Irrigated with Saline Saline Saline -Foul Odor after Cleansing No No No -Bioengineered Tissue No No No -Bleeding Controlled with Pressure Pressure Pressure -Offloading No No No -Treatment Response Procedure Procedure Procedure Tolerated Well Tolerated Well Tolerated Well -Debridement - Subq, 1st 20sq cm No Yes No #1 R Ankle -Time 11: 11:35 11:39 -Correct Patient Yes Yes Yes -Correct Side, Site, Position Yes Yes Yes -Correct Procedure Yes Yes Yes -Procedure Performed Yes Yes Yes -Type of Procedure Debridement Debridement Debridement -Clinical Debridement Subcutaneous Subcutaneous Subcutaneous -Tissue Removed Subcutaneous Subcutaneous Subcutaneous -Post Debridement (cm) - Length 1.0 0.6 0.7 -Post Debridement (cm) - Width 0.8 0.7 0.7 -Post Debridement (cm) - Depth 0.1 0.1 0.1 -Total Square (Post) (cm) 0.80 0.42 0.49 -Area of Debridement (cm) - Length 1.0 0.6 0.7 -Area of Debridement (cm) - Width 0.8 0.7 0.7 -Total Square (Area) (cm) 0.80 0.42 0.49 -Tunneling No No No -Undermining/Tunneling No No No -Circular Undermining No No No -Wound/Ulcer Outcome Not Healed Not Healed Not Healed -Ulcer Cleansing Rinsed/ Rinsed/ Rinsed/ Irrigated with Irrigated with Irrigated with Saline Saline Saline -Foul Odor after Cleansing No No No -Bioengineered Tissue No No No -Bleeding Controlled with Pressure Pressure Pressure -Offloading No No No -Treatment Response Procedure Procedure Procedure Tolerated Well Tolerated Well Tolerated Well -Debridement - Subq, 1st 20sq cm No No No Pain Scale: 0-10 Numeric Is Patient Pain Free? Yes Yes Yes WC - Nurse 3 - General Ulcer D/C NN Start: 01/08/21 09:55 Freq: Status: Active Protocol: Activity Type Activity Date Activity User E-Sign Co-Sign Detail Recorded Client Recorded Date Recorded By Document 01/08/21 11:24 DL [id number] 01/08/21 11:34 DL Document 01/15/21 11:45 DL [id number] 01/15/21 11:50 DL Document 01/22/21 11:46 RB [id number] 01/22/21 11:49 RB 01/08/21 01/15/21 01/22/21 11:24 11:45 11:46 Wound Care Nurse 3 #3 R Calf -Ulcer Cleansing Rinsed/ Rinsed/ Irrigated with Irrigated with Saline Saline -Foul Odor after Cleansing No No -Primary Dressing Applied Aquacel AG 4x4 Aquacel AG 4x4, NonAdherent Contact Layer -Primary Dressing Covered/Secured with Dry Gauze, Dry Gauze & Dry Gauze,Dry Secured with Roll Gauze, Gauze & Roll Tape Secured with Gauze,Secured Tape with Tape -Aquacel AG 4x4 1 1 #2 R medial LE -Ulcer Cleansing Rinsed/ Rinsed/ Irrigated with Irrigated with Saline Saline -Foul Odor after Cleansing No -Primary Dressing Applied NonAdherent Aquacel Extra, Contact Layer NonAdherent Contact Layer -Other Dressing aquacel ag -Primary Dressing Covered/Secured with Dry Gauze, Dry Gauze & Dry Gauze,Dry Secured with Roll Gauze, Gauze & Roll Tape Secured with Gauze,Secured Tape with Tape -Aquacel Extra 1 #1 R Ankle -Ulcer Cleansing Rinsed/ Rinsed/ Rinsed/ Irrigated with Irrigated with Irrigated with Saline Saline Saline -Foul Odor after Cleansing No -Primary Dressing Applied NonAdherent Aquacel Extra, Contact Layer NonAdherent Contact Layer -Other Dressing aquacel ag -Primary Dressing Covered/Secured with Dry Gauze, Dry Gauze & Dry Gauze,Dry Secured with Roll Gauze, Gauze & Roll Tape Secured with Gauze,Secured Tape with Tape -Aquacel Extra 1 Right -Tubular Bandage Double Layer Double Layer Single Layer -Size of Tubigrip Used Size F Size F Size F -Size F ($) 2 1 1 -Stockings Yes Treatment Response Procedure Tolerated Well Pain Scale: 0-10 Numeric Is Patient Pain Free? Yes Yes WC - Visit Discharge Discharge Condition Stable Stable Stable Ambulatory Status Wheelchair Wheelchair Ambulatory Transportation Private Auto Private Auto Private Auto Accompanied by Medication Reconcilliation completed & No provided to patient/care provider Clinical Summary of Care Provided Yes Wound debrided: Right lower extremity (posterior) Type of Debridement: Excisional debridement Anesthesia Used: 4% Lidocaine Solution Depth: Down to and including healthy tissue and in the subcutaneous layer Percentage of wound debrided: 100 Instrument Used: 5mm curette Tissue Removed: Slough and devitalized tissue Severity: Fat Layer Exposed Amount of bleeding with debridement: Mild Bleeding Controlled with: Pressure Patient tolerated procedure: Patient tolerated procedure well Additional Wound Wound debrided: Right lower extremity (medial) Type of Debridement: Excisional debridement Anesthesia Used: 4% Lidocaine Solution Depth: Down to and including healthy tissue and in the subcutaneous layer Percentage of wound debrided: 100 Instrument Used: 5mm curette Tissue Removed: Slough and devitalized tissue Severity: Fat Layer Exposed Amount of bleeding with debridement: Mild Bleeding Controlled with: Pressure Patient tolerated procedure: Patient tolerated procedure well Additional Wound Wound debrided: Right ankle (medial) Type of Debridement: Excisional debridement Anesthesia Used: 4% Lidocaine Solution Depth: Down to and including healthy tissue and in the subcutaneous layer Percentage of wound debrided: 100 Instrument Used: 5mm curette Tissue Removed: Slough and devitalized tissue Severity: Fat Layer Exposed Amount of bleeding with debridement: Mild Bleeding Controlled with: Pressure Assessment/Plan Assessment/Plan (1) Ulcer of right lower extremity with fat layer exposed: CODE(S): L97.912 - Non-pressure chronic ulcer of unspecified part of right lower leg with fat layer exposed (2) Edema of right lower extremity: CODE(S): R60.0 - Localized edema (3) Type 2 diabetes mellitus: CODE(S): E11.9 - Type 2 diabetes mellitus without complications PLAN: Improving. No new concerns at this time. Debridement done as documented above, procedure was well-tolerated. Continue Aquacel extra daily with Adaptic over top. Double layer Tubigrip for edema management. Elevate lower extremities when seated and in bed. Optimal diabetes control again recommended. Increase intake of protein rich foods, vitamin C and zinc. Recently had venous studies, will request records. Her questions were answered and she was advised to call with any further questions or concerns. This note was generated with [employer] software. It may contain incorrect words, spelling, and punctuation that were not noted in checking the note before signing.
== END 2021-01-24 23:59 ==
LOC: WC 11:15
PROVIDERS: Visit Provider Internal Medicine
DX: E11.622 Type 2 diabetes mellitus with other skin ulcer (principal); M79.89 Other specified soft tissue disorders; L97.812 Non-pressure chronic ulcer of other part of right lower leg with fat layer exposed; Z79.899 Other long term (current) drug therapy; Z79.01 Long term (current) use of anticoagulants; Z79.84 Long term (current) use of oral hypoglycemic drugs; L97.312 Non-pressure chronic ulcer of right ankle with fat layer exposed; L97.212 Non-pressure chronic ulcer of right calf with fat layer exposed; I87.2 Venous insufficiency (chronic) (peripheral)
CPT/HCPCS: 11042; 11045; 87070; 87075; 87077; 87186; 87205; 99203; G0463

== ENCOUNTER 2021-02-19 11:15 | Outpatient (RCR) | payer MEDICARE, SELFPAY ==
[2021-01-25 00:38] VITALS: BP 139/62; PULSE 68; RESP 22; TEMP 36.8; O2SAT 95
[2021-02-05 11:19] VITALS: BP 146/98; PULSE 101; RESP 24; TEMP 36.3
--- NOTE | 2021-02-05 12:48 | PN.PCM_ITS ---
History of Present Illness Date of Service: 02/05/21 Chief Complaint: Right Lower Extremity Ulcers History of Wound: Ms. Kwong is a 80 yo who was referred to the wound center by her patient relations manager due to nonhealing right lower extremity ulcers. Initially noted in August, denies any known precipitating factor however, has had problematic right lower extremity swelling for months. Was given a prescription for compression stockings however has had difficulty wearing it. She states that she has been applying antibiotic ointment to the ulcers otherwise has left it open to air. History of diabetes mellitus which is said to be well controlled. She feels well otherwise and denies chills, fever, nausea, vomiting or change in bowel habit. Subjective Subjective Was recently in the hospital for 3 days due to right lower extremity cellulitis. She reports feeling better. Still has lower extremity/ Ulcer pain. Objective Data Objective Data Vital Signs: Vital Signs Temp Pulse Resp BP Pulse Ox 97.4 F L 101 H 24 H 146/98 H 95 02/05/21 11:19 02/05/21 11:19 02/05/21 11:19 02/05/21 11:19 01/25/21 00:38 Charges/Coding Procedures Integumentary [id number]: [id number] Marie subq tissue 20 sq cm/< Physical Exam Const alert, oriented x3 and no apparent distress General Appearance: cooperative and comfortable HEENT normocephalic and head/scalp atraumatic Neck full ROM and supple General: normal visual inspection Resp normal respiratory effort Effort and Inspection: able to speak in complete sentences Skin Wounds: wounds noted Neuro oriented x3 and CN's II-XII intact bilaterally Sensorium / Orientation: awake, alert and oriented to person Psych mental status grossly normal Appearance: grossly normal Attitude: calm Activity / Motor Behavior: appropriate eye contact Debridement Note Debridement Note Post-Debridement Measurements and Additional Note: Post-Debridement Measurements/Treatment WC - Nurse 1 - General Ulcer Assessment Start: 02/05/21 11:19 Freq: Status: Active Protocol: ROSE Activity Type Activity Date Activity User E-Sign Co-Sign Detail Recorded Client Recorded Date Recorded By Document 02/05/21 11:19 SYEDA [id number] 02/05/21 11:28 DL 02/05/21 11:19 ONESIMO - Today's Visit Information Type of service Follow-up Visit (Physician/SETTLEMENT WORKER ) Arrival Mode Wheelchair Transfer Assistance Manual Transfer Assist (Other) x2 Patient Identification Verified (Name & Yes ) Patient Requires Transmission-Based No Precautions Finger Stick Blood Sugar(mg/dl) (if not checked indicated): Blood Sugar Stated by Patient Vital Signs Temperature (97.8 F-99.1 F) 97.4 F L Temperature Source Temporal Pulse Rate (60-100) 101 H Pulse Location Monitor Respiratory Rate (12-18) 24 H Respiratory rate source Observation Blood Pressure (90/60-120/80) 146/98 H Blood Pressure Mean (mm Hg) 114 Source Monitor History Since Last Visit- (Skip if this is Patient's initial visit) Have you changed medications since your No last visit? Any new allergies or adverse reactions No Had a fall/change in ADL's that may No increase risk of falls Signs or symptoms of abuse and/or No neglect since last visit Have you been in the hospital since your Yes last visit? Has dressing in place as prescribed Yes Has compression in place as prescribed N/A Has offloadiing in place as prescribed Yes Experienced any changes in pain level or No management Left Footwear Slipper Right Footwear Slipper Pain Scale: 0-10 Numeric Is Patient Pain Free? Yes WC - Nurse 1 - General Ulcer Measurement Start: 02/05/21 11:19 Freq: Status: Active Protocol: Activity Type Activity Date Activity User E-Sign Co-Sign Detail Recorded Client Recorded Date Recorded By Document 02/05/21 11:19 SYEDA [id number] 02/05/21 11:28 DL 02/05/21 11:19 Wound Center Nurse 1 #3 R Calf -Current Size (cm) - Length 2.9 -Current Size (cm) - Width 1.1 -Current Size (cm) - Depth 0.1 -Total Square Cm 3.19 -Photo Taken No -Exudate Amt Medium -Exudate Type Serosanguineous -Wound Margin Indistinct, Non -Visible -Granulation Amt Medium (34-66%) -Granulation Quality Pale -Necrosis Amt Large (67-100%) -Necrotic Tissue Type Adherent Slough -Structure Exposed N/A -Texture (Richelle-wound Skin Appearance) Scarring -Moisture (Richelle-wound Skin Appearance) Weeping -Color (Richelle-wound Skin Appearance) Erythema -Temperature (Richelle-wound Skin No Abnormality Appearance) (Pt Warm) -Tenderness on Palpation (Richelle-wound No Skin Appearance) -Ulcer Cleansing Wound Cleanser -Foul Odor after Cleansing No -Anesthetic Used 4% Lidocaine Solution #1 R Ankle -Current Size (cm) - Length 1.8 -Current Size (cm) - Width 0.8 -Current Size (cm) - Depth 0.1 -Total Square Cm 1.44 -Photo Taken No -Exudate Amt None Present -Wound Margin Thickened -Granulation Amt None Present (0 %) -Necrosis Amt Small (1-33%) -Necrotic Tissue Type Eschar -Structure Exposed N/A -Texture (Richelle-wound Skin Appearance) Scarring -Moisture (Richelle-wound Skin Appearance) Dry/Scaly -Color (Richelle-wound Skin Appearance) Erythema -Temperature (Richelle-wound Skin No Abnormality Appearance) (Pt Warm) -Tenderness on Palpation (Richelle-wound No Skin Appearance) -Ulcer Cleansing Wound Cleanser -Foul Odor after Cleansing No -Anesthetic Used 4% Lidocaine Solution WC - Nurse 2 - General Ulcer CM Notes Start: 02/05/21 11:19 Freq: Status: Active Protocol: Activity Type Activity Date Activity User E-Sign Co-Sign Detail Recorded Client Recorded Date Recorded By Document 02/05/21 11:52 MW [id number] 02/05/21 11:59 MW 02/05/21 11:52 Wound Center Nurse 2 #3 R Calf -Time 11:57 -Correct Patient Yes -Correct Side, Site, Position Yes -Correct Procedure Yes -Procedure Performed No -Post Debridement (cm) - Length 0.1 -Post Debridement (cm) - Width 0.1 -Post Debridement (cm) - Depth 0.1 -Total Square (Post) (cm) 0.01 -Tunneling No -Undermining/Tunneling No -Circular Undermining No -Wound/Ulcer Outcome Not Healed -Ulcer Cleansing Rinsed/ Irrigated with Saline -Foul Odor after Cleansing No -Bioengineered Tissue No -Bleeding Controlled with NA -Offloading No -Treatment Response Procedure Tolerated Well #2 R medial LE -Time 11:57 -Correct Patient Yes -Correct Side, Site, Position Yes -Correct Procedure Yes -Procedure Performed Yes -Type of Procedure Debridement -Clinical Debridement Subcutaneous -Tissue Removed Subcutaneous -Post Debridement (cm) - Length 3.2 -Post Debridement (cm) - Width 1.2 -Post Debridement (cm) - Depth 0.1 -Total Square (Post) (cm) 3.84 -Area of Debridement (cm) - Length 3.2 -Area of Debridement (cm) - Width 0.1 -Total Square (Area) (cm) 0.32 -Tunneling No -Undermining/Tunneling No -Circular Undermining No -Wound/Ulcer Outcome Not Healed -Ulcer Cleansing Rinsed/ Irrigated with Saline -Foul Odor after Cleansing No -Bioengineered Tissue No -Bleeding Controlled with Pressure -Offloading No -Treatment Response Procedure Tolerated Well -Debridement - Subq, 1st 20sq cm Yes #1 R Ankle -Time 11:58 -Correct Patient Yes -Correct Side, Site, Position Yes -Correct Procedure Yes -Procedure Performed Yes -Type of Procedure Debridement -Clinical Debridement Subcutaneous -Tissue Removed Subcutaneous -Post Debridement (cm) - Length 0.6 -Post Debridement (cm) - Width 0.7 -Post Debridement (cm) - Depth 0.1 -Total Square (Post) (cm) 0.42 -Area of Debridement (cm) - Length 0.6 -Area of Debridement (cm) - Width 0.7 -Total Square (Area) (cm) 0.42 -Tunneling No -Undermining/Tunneling No -Circular Undermining No -Wound/Ulcer Outcome Not Healed -Ulcer Cleansing Rinsed/ Irrigated with Saline -Foul Odor after Cleansing No -Bioengineered Tissue No -Bleeding Controlled with Pressure -Offloading No -Debridement - Subq, 1st 20sq cm No Pain Scale: 0-10 Numeric Is Patient Pain Free? Yes WC - Nurse 3 - General Ulcer D/C NN Start: 02/05/21 11:19 Freq: Status: Active Protocol: Activity Type Activity Date Activity User E-Sign Co-Sign Detail Recorded Client Recorded Date Recorded By Document 02/05/21 12:15 JADON [id number] 02/05/21 12:20 AK 02/05/21 12:15 Wound Care Nurse 3 #3 R Calf -Ulcer Cleansing Rinsed/ Irrigated with Saline -Foul Odor after Cleansing No -Primary Dressing Applied Aquacel Extra, NonAdherent Contact Layer -Other Dressing ABD Pads, optilock -Primary Dressing Covered/Secured with Dry Gauze & Roll Gauze -Aquacel Extra 1 #2 R medial LE -Ulcer Cleansing Rinsed/ Irrigated with Saline -Foul Odor after Cleansing No -Primary Dressing Applied Aquacel Extra -Primary Dressing Covered/Secured with Dry Gauze & Roll Gauze -Other Covering ABD -Aquacel Extra 0 #1 R Ankle -Ulcer Cleansing Rinsed/ Irrigated with Saline -Foul Odor after Cleansing No -Primary Dressing Applied Aquacel Extra -Other Covering ABD -Aquacel Extra 0 right leg -Lotion applied to leg before No compression wrap -Compression Wrap Jerardo Wrap -Size of Tubigrip Used Size F -Stockings No WC - Visit Discharge Discharge Condition Stable Ambulatory Status Wheelchair Transportation Private Auto Clinical Summary of Care Provided Yes Wound debrided: Right Lower extremity ( Medial ) Type of Debridement: Excisional debridement Depth: Down to and including healthy tissue Percentage of wound debrided: 100 Instrument Used: 5mm curette Tissue Removed: Slough and devitalized tissue Severity: Fat Layer Exposed Amount of bleeding with debridement: Mild Bleeding Controlled with: Pressure Patient tolerated procedure: Patient tolerated procedure well Additional Wound Wound debrided: Right Medial Ankle Type of Debridement: Excisional debridement Anesthesia Used: 4% Lidocaine Solution Depth: Down to and including healthy tissue and in the subcutaneous layer Percentage of wound debrided: 100 Instrument Used: 5mm curette Tissue Removed: Slough and devitalized tissue Severity: Fat Layer Exposed Amount of bleeding with debridement: Mild Bleeding Controlled with: Pressure Patient tolerated procedure: Patient tolerated procedure well Assessment/Plan Assessment/Plan (1) Ulcer of right lower extremity with fat layer exposed: CODE(S): L97.912 - Non-pressure chronic ulcer of unspecified part of right lower leg with fat layer exposed (2) Edema of right lower extremity: CODE(S): R60.0 - Localized edema (3) Type 2 diabetes mellitus: CODE(S): E11.9 - Type 2 diabetes mellitus without complications PLAN: Status post recent hospital admission for right lower extremity cellulitis. Currently on oral antibiotics. Significant left lower extremity edema with drainage noted. Debridement done as documented above, procedure was well-tolerated. Continue Aquacel extra daily with Adaptic over top. Very lengthy discussion had with patient and spouse on the need for edema management. Did not tolerate W 2 weeks, singly attributes with Jerardo wrap. Currently has [employer] Elevate lower extremities when seated and in bed. Optimal diabetes control again recommended. Increase intake of protein rich foods, vitamin C and zinc. Recently had venous studies, will request records. Her questions were answered and she was advised to call with any further questions or concerns. Follow-up in 2 weeks. This note was generated with [employer] dictation software. It may contain incorrect words, spelling, and punctuation that were not noted in checking the note before signing.
[2021-02-19 11:27] VITALS: BP 132/72; PULSE 97; RESP 18; TEMP 37.1
--- NOTE | 2021-02-19 13:03 | PCM.WC.PN ---
History of Present Illness Date of Service: 02/19/21 Chief Complaint: Right Lower Extremity Ulcers History of Wound: Ms. Kwong is a 80 yo who was referred to the wound center by her womens health nurse practitioner due to nonhealing right lower extremity ulcers. Initially noted in August, denies any known precipitating factor however, has had problematic right lower extremity swelling for months. Was given a prescription for compression stockings however has had difficulty wearing it. She states that she has been applying antibiotic ointment to the ulcers otherwise has left it open to air. History of diabetes mellitus which is said to be well controlled. She feels well otherwise and denies chills, fever, nausea, vomiting or change in bowel habit. Subjective Subjective Still significant lower extremity edema. New onset right lateral ulcer. Denies any known precipitating factor. A lot of drainage from her ulcers. Not tolerating Tubigrip and Jerardo wrap. Objective Data Objective Data Vital Signs: Vital Signs Temp Pulse Resp BP Pulse Ox 98.7 F 97 18 132/72 H 95 02/19/21 11:27 02/19/21 11:27 02/19/21 11:27 02/19/21 11:27 01/25/21 00:38 Charges/Coding Procedures Integumentary [id number]: [id number] Mraie subq tissue 20 sq cm/< Physical Exam Const alert, oriented x3 and no apparent distress General Appearance: cooperative and comfortable HEENT normocephalic and head/scalp atraumatic Neck full ROM and supple General: normal visual inspection Resp normal respiratory effort Effort and Inspection: able to speak in complete sentences Skin Wounds: wounds noted Neuro oriented x3 and CN's II-XII intact bilaterally Sensorium / Orientation: awake, alert and oriented to person Psych mental status grossly normal Appearance: grossly normal Attitude: calm Activity / Motor Behavior: appropriate eye contact Debridement Note Debridement Note Post-Debridement Measurements and Additional Note: Post-Debridement Measurements/Treatment WC - Nurse 1 - General Ulcer Assessment Start: 02/05/21 11:19 Freq: Status: Active Protocol: ROSE Activity Type Activity Date Activity User E-Sign Co-Sign Detail Recorded Client Recorded Date Recorded By Document 02/05/21 11:19 DL [id number] 02/05/21 11:28 DL Document 02/19/21 11:27 ML [id number] 02/19/21 11:37 ML 02/05/21 02/19/21 11:19 11:27 WC - Today's Visit Information Type of service Follow-up Visit Follow-up Visit (Physician/DESIGN AND SALES CONSULTANT (Physician/DESIGN AND SALES CONSULTANT ) ) Arrival Mode Wheelchair Wheelchair Transfer Assistance Manual None Transfer Assist (Other) x2 Patient Identification Verified (Name & Yes Yes ) Patient Requires Transmission-Based No No Precautions Safety Precautions NA Finger Stick Blood Sugar(mg/dl) (if not checked 120 indicated): Blood Sugar Stated by Stated by Patient Patient Vital Signs Temperature (97.8 F-99.1 F) 97.4 F L 98.7 F Temperature Source Temporal Temporal Pulse Rate (60-100) 101 H 97 Pulse Location Monitor Monitor Respiratory Rate (12-18) 24 H 18 Respiratory rate source Observation Observation Blood Pressure (90/60-120/80) 146/98 H 132/72 H Blood Pressure Mean (mm Hg) 114 92 Source Monitor Monitor Position Sitting Blood Pressure Location Left Arm History Since Last Visit- (Skip if this is Patient's initial visit) Have you changed medications since your No Yes last visit? Any new allergies or adverse reactions No No Had a fall/change in ADL's that may No No increase risk of falls Signs or symptoms of abuse and/or No No neglect since last visit Have you been in the hospital since your Yes No last visit? Has dressing in place as prescribed Yes Yes Has compression in place as prescribed N/A N/A Has offloadiing in place as prescribed Yes N/A Experienced any changes in pain level or No No management Left Footwear Slipper Regular Shoe Right Footwear Slipper Regular Shoe Pain Scale: 0-10 Numeric Is Patient Pain Free? Yes Yes - Nurse 1 - General Ulcer Measurement Start: 02/05/21 11:19 Freq: Status: Active Protocol: Activity Type Activity Date Activity User E-Sign Co-Sign Detail Recorded Client Recorded Date Recorded By Document 02/05/21 11:19 DL [id number] 02/05/21 11:28 DL Document 02/19/21 11:27 ML [id number] 02/19/21 11:37 ML 02/05/21 02/19/21 11:19 11:27 Wound Center Nurse 1 #3 R Calf -Current Size (cm) - Length 2.9 0.7 -Current Size (cm) - Width 1.1 0.6 -Current Size (cm) - Depth 0.1 0.1 -Total Square Cm 3.19 0.42 -Photo Taken No -Exudate Amt Medium Large -Exudate Type Serosanguineous Serosanguineous -Wound Margin Indistinct, Non Distinct, -Visible Outline Attached -Granulation Amt Medium (34-66%) Medium (34-66%) -Granulation Quality Pale -Necrosis Amt Large (67-100%) Medium (34-66%) -Necrotic Tissue Type Adherent Slough -Structure Exposed N/A -Texture (Richelle-wound Skin Appearance) Scarring Assessed -Moisture (Richelle-wound Skin Appearance) Weeping Assessed -Color (Richelle-wound Skin Appearance) Erythema Assessed -Temperature (Richelle-wound Skin No Abnormality No Abnormality Appearance) (Pt Warm) (Pt Warm) -Tenderness on Palpation (Richelle-wound No Skin Appearance) -Ulcer Cleansing Wound Cleanser Wound Cleanser -Foul Odor after Cleansing No No -Anesthetic Used 4% Lidocaine 4% Lidocaine Solution Solution #2 R medial LE -Current Size (cm) - Length 3 -Current Size (cm) - Width 1.2 -Current Size (cm) - Depth 0.1 -Total Square Cm 3.6 -Exudate Amt Medium -Exudate Type Serosanguineous -Granulation Amt Medium (34-66%) -Slough/Fibrin Yes -Necrosis Amt Medium (34-66%) -Necrotic Tissue Type Adherent Slough -Texture (Richelle-wound Skin Appearance) Assessed -Moisture (Richelle-wound Skin Appearance) Assessed -Color (Richelle-wound Skin Appearance) Assessed -Temperature (Richelle-wound Skin No Abnormality Appearance) (Pt Warm) -Tenderness on Palpation (Richelle-wound No Skin Appearance) -Ulcer Cleansing Wound Cleanser -Anesthetic Used 4% Lidocaine Solution #1 R Ankle -Current Size (cm) - Length 1.8 0.3 -Current Size (cm) - Width 0.8 0.3 -Current Size (cm) - Depth 0.1 0.1 -Total Square Cm 1.44 0.09 -Photo Taken No -Exudate Amt None Present Medium -Exudate Type Serosanguineous -Wound Margin Thickened Distinct, Outline Attached -Granulation Amt None Present (0 Medium (34-66%) %) -Slough/Fibrin Yes -Necrosis Amt Small (1-33%) Medium (34-66%) -Necrotic Tissue Type Eschar Adherent Slough -Structure Exposed N/A -Texture (Richelle-wound Skin Appearance) Scarring Assessed -Moisture (Richelle-wound Skin Appearance) Dry/Scaly Assessed -Color (Richelle-wound Skin Appearance) Erythema Assessed -Temperature (Richelle-wound Skin No Abnormality No Abnormality Appearance) (Pt Warm) (Pt Warm) -Tenderness on Palpation (Richelle-wound No No Skin Appearance) -Ulcer Cleansing Wound Cleanser Wound Cleanser -Foul Odor after Cleansing No No -Anesthetic Used 4% Lidocaine 4% Lidocaine Solution Solution WC - Nurse 2 - General Ulcer CM Notes Start: 02/05/21 11:19 Freq: Status: Active Protocol: Activity Type Activity Date Activity User E-Sign Co-Sign Detail Recorded Client Recorded Date Recorded By Document 02/05/21 11:52 MW [id number] 02/05/21 11:59 MW Document 02/19/21 12:02 MW [id number] 02/19/21 12:10 MW 02/05/21 02/19/21 11:52 12:02 Wound Center Nurse 2 #4 RIGHT LATERAL ANKLE -Time 12:08 -Correct Patient Yes -Correct Side, Site, Position Yes -Correct Procedure Yes -Procedure Performed Yes -Type of Procedure Debridement -Clinical Debridement Subcutaneous -Tissue Removed Subcutaneous -Post Debridement (cm) - Length 1.5 -Post Debridement (cm) - Width 0.8 -Post Debridement (cm) - Depth 0.1 -Total Square (Post) (cm) 1.20 -Area of Debridement (cm) - Length 1.5 -Area of Debridement (cm) - Width 0.8 -Total Square (Area) (cm) 1.20 -Tunneling No -Undermining/Tunneling No -Circular Undermining No -Wound/Ulcer Outcome Not Healed -Ulcer Cleansing Rinsed/ Irrigated with Saline -Foul Odor after Cleansing No -Bioengineered Tissue No -Bleeding Controlled with Pressure -Offloading No -Treatment Response Procedure Tolerated Well -Debridement - Subq, 1st 20sq cm No #3 R Calf -Time 11:57 12:03 -Correct Patient Yes Yes -Correct Side, Site, Position Yes Yes -Correct Procedure Yes Yes -Procedure Performed No No -Post Debridement (cm) - Length 0.1 0.1 -Post Debridement (cm) - Width 0.1 0.1 -Post Debridement (cm) - Depth 0.1 0.1 -Total Square (Post) (cm) 0.01 0.01 -Tunneling No No -Undermining/Tunneling No No -Circular Undermining No No -Wound/Ulcer Outcome Not Healed Not Healed -Ulcer Cleansing Rinsed/ Rinsed/ Irrigated with Irrigated with Saline Saline -Foul Odor after Cleansing No No -Bioengineered Tissue No No -Bleeding Controlled with NA NA -Offloading No No -Treatment Response Procedure Tolerated Well #2 R medial LE -Time 11:57 12:07 -Correct Patient Yes Yes -Correct Side, Site, Position Yes Yes -Correct Procedure Yes Yes -Procedure Performed Yes Yes -Type of Procedure Debridement Debridement -Clinical Debridement Subcutaneous Subcutaneous -Tissue Removed Subcutaneous Subcutaneous -Post Debridement (cm) - Length 3.2 3.0 -Post Debridement (cm) - Width 1.2 1.8 -Post Debridement (cm) - Depth 0.1 0.1 -Total Square (Post) (cm) 3.84 5.40 -Area of Debridement (cm) - Length 3.2 3.0 -Area of Debridement (cm) - Width 0.1 1.8 -Total Square (Area) (cm) 0.32 5.40 -Tunneling No No -Undermining/Tunneling No No -Circular Undermining No No -Wound/Ulcer Outcome Not Healed Not Healed -Ulcer Cleansing Rinsed/ Rinsed/ Irrigated with Irrigated with Saline Saline -Foul Odor after Cleansing No No -Bioengineered Tissue No No -Bleeding Controlled with Pressure Pressure -Offloading No No -Treatment Response Procedure Procedure Tolerated Well Tolerated Well -Debridement - Subq, 1st 20sq cm Yes Yes #1 R Ankle -Time 11:58 12:07 -Correct Patient Yes Yes -Correct Side, Site, Position Yes Yes -Correct Procedure Yes Yes -Procedure Performed Yes Yes -Type of Procedure Debridement Debridement -Clinical Debridement Subcutaneous Subcutaneous -Tissue Removed Subcutaneous Subcutaneous -Post Debridement (cm) - Length 0.6 0.4 -Post Debridement (cm) - Width 0.7 0.5 -Post Debridement (cm) - Depth 0.1 0.1 -Total Square (Post) (cm) 0.42 0.20 -Area of Debridement (cm) - Length 0.6 0.4 -Area of Debridement (cm) - Width 0.7 0.5 -Total Square (Area) (cm) 0.42 0.20 -Tunneling No No -Undermining/Tunneling No No -Circular Undermining No No -Wound/Ulcer Outcome Not Healed Not Healed -Ulcer Cleansing Rinsed/ Rinsed/ Irrigated with Irrigated with Saline Saline -Foul Odor after Cleansing No No -Bioengineered Tissue No No -Bleeding Controlled with Pressure Pressure -Offloading No No -Treatment Response Procedure Tolerated Well -Debridement - Subq, 1st 20sq cm No No Pain Scale: 0-10 Numeric Is Patient Pain Free? Yes Yes WC - Nurse 3 - General Ulcer D/C NN Start: 02/05/21 11:19 Freq: Status: Active Protocol: Activity Type Activity Date Activity User E-Sign Co-Sign Detail Recorded Client Recorded Date Recorded By Document 02/05/21 12:15 AK [id number] 02/05/21 12:20 AK Document 02/19/21 12:16 MW [id number] 02/19/21 12:18 MW 02/05/21 02/19/21 12:15 12:16 Wound Care Nurse 3 #4 RIGHT LATERAL ANKLE -Ulcer Cleansing Rinsed/ Irrigated with Saline -Foul Odor after Cleansing No -Negative Pressure Wound Therapy N/A -Primary Dressing Applied Aquacel Extra, NonAdherent Contact Layer -Primary Dressing Covered/Secured with Dry Gauze & Roll Gauze, Secured with Tape -Aquacel Extra 1 #3 R Calf -Ulcer Cleansing Rinsed/ Rinsed/ Irrigated with Irrigated with Saline Saline -Foul Odor after Cleansing No No -Negative Pressure Wound Therapy N/A -Primary Dressing Applied Aquacel Extra, NonAdherent NonAdherent Contact Layer Contact Layer -Other Dressing ABD Pads, AQUACEL EXTRA optilock -Primary Dressing Covered/Secured with Dry Gauze & Dry Gauze & Roll Gauze Roll Gauze, Secured with Tape -Aquacel Extra 1 #2 R medial LE -Ulcer Cleansing Rinsed/ Rinsed/ Irrigated with Irrigated with Saline Saline -Foul Odor after Cleansing No No -Negative Pressure Wound Therapy N/A -Primary Dressing Applied Aquacel Extra NonAdherent Contact Layer -Other Dressing AQUACEL EXTRA -Primary Dressing Covered/Secured with Dry Gauze & Dry Gauze & Roll Gauze Roll Gauze, Secured with Tape -Other Covering ABD -Aquacel Extra 0 #1 R Ankle -Ulcer Cleansing Rinsed/ Rinsed/ Irrigated with Irrigated with Saline Saline -Foul Odor after Cleansing No No -Negative Pressure Wound Therapy N/A -Primary Dressing Applied Aquacel Extra NonAdherent Contact Layer -Other Dressing AQUACEL EXTRA -Primary Dressing Covered/Secured with Dry Gauze & Roll Gauze, Secured with Tape -Other Covering ABD -Aquacel Extra 0 right leg -Lotion applied to leg before No No compression wrap -Compression Wrap Jerardo Wrap -Tubular Bandage Single Layer -Size of Tubigrip Used Size F Size F -Size F ($) 1 -Stockings No No Treatment Response Procedure Tolerated Well Pain Scale: 0-10 Numeric Is Patient Pain Free? Yes Teaching: Wound Center Dressing Your Wound -Person Taught Patient -Teaching Method Discussion -Response to teaching Verbalize understanding WC - Visit Discharge Discharge Condition Stable Stable Ambulatory Status Wheelchair Ambulatory,Cane Transportation Private Auto Private Auto Accompanied by Medication Reconcilliation completed & No provided to patient/care provider Clinical Summary of Care Provided Yes Yes Wound debrided: Right lower extremity medial Type of Debridement: Excisional debridement Anesthesia Used: 4% Lidocaine Solution Depth: Down to and including healthy tissue and in the subcutaneous layer Percentage of wound debrided: 100 Instrument Used: 5mm curette Tissue Removed: Slough and devitalized tissue Severity: Fat Layer Exposed Amount of bleeding with debridement: Mild Bleeding Controlled with: Pressure Patient tolerated procedure: Patient tolerated procedure well Additional Wound Wound debrided: Right medial ankle Type of Debridement: Excisional debridement Anesthesia Used: 4% Lidocaine Solution Depth: Down to and including healthy tissue and in the subcutaneous layer Percentage of wound debrided: 100 Instrument Used: 5mm curette Tissue Removed: Slough and devitalized tissue Severity: Fat Layer Exposed Amount of bleeding with debridement: Mild Bleeding Controlled with: Pressure Patient tolerated procedure: Patient tolerated procedure well Additional Wound Wound debrided: Right lateral ankle Type of Debridement: Excisional debridement Anesthesia Used: 4% Lidocaine Solution Depth: Down to and including healthy tissue and in the subcutaneous layer Percentage of wound debrided: 100 Instrument Used: 5mm curette Tissue Removed: Slough and devitalized tissue Severity: Fat Layer Exposed Amount of bleeding with debridement: Mild Bleeding Controlled with: Pressure Patient tolerated procedure: Patient tolerated procedure well Assessment/Plan Assessment/Plan (1) Ulcer of right lower extremity with fat layer exposed: CODE(S): L97.912 - Non-pressure chronic ulcer of unspecified part of right lower leg with fat layer exposed (2) Type 2 diabetes mellitus: CODE(S): E11.9 - Type 2 diabetes mellitus without complications (3) Lymphedema of both lower extremities: CODE(S): I89.0 - Lymphedema, not elsewhere classified PLAN: Still significant right lower extremity edema with drainage noted. Debridement done as documented above, procedure was well-tolerated. Continue Aquacel extra daily with Adaptic over top. Very lengthy discussion had with patient and spouse on the need for edema management. Again, did not tolerate double layer to be a single layer and Jerardo wrap. Has been using Singulair alone which has not been sufficient to control edema. Due to significant lower extremity edema/lymphedema, prescription for lymphedema pumps sent. I believe this will be very beneficial in edema management and subsequent wound healing. Elevate lower extremities when seated and in bed. Exercise as tolerated. Optimal diabetes control again recommended. Increase intake of protein rich foods, vitamin C and zinc. Her questions were answered and she was advised to call with any further questions or concerns. Follow-up in 1 week. This note was generated with [employer] dictation software. It may contain incorrect words, spelling, and punctuation that were not noted in checking the note before signing.
== END 2021-02-24 23:59 ==
LOC: WC 11:15
PROVIDERS: Visit Provider Internal Medicine
DX: E11.622 Type 2 diabetes mellitus with other skin ulcer (principal); L97.812 Non-pressure chronic ulcer of other part of right lower leg with fat layer exposed; M79.89 Other specified soft tissue disorders; L97.312 Non-pressure chronic ulcer of right ankle with fat layer exposed; E11.621 Type 2 diabetes mellitus with foot ulcer; R60.0 Localized edema; I89.0 Lymphedema, not elsewhere classified
CPT/HCPCS: 11042

== ENCOUNTER 2021-03-19 11:00 | Outpatient (RCR) | payer MEDICARE, SELFPAY ==
[2021-02-25 00:39] VITALS: BP 132/72; PULSE 97; RESP 18; TEMP 37.1; O2SAT 95
[2021-02-26 11:55] VITALS: BP 124/54; PULSE 75; TEMP 36.4
--- NOTE | 2021-02-26 13:55 | PCM.WC.PN ---
History of Present Illness Date of Service: 02/26/21 Chief Complaint: Right Lower Extremity Ulcers History of Wound: Ms. Kwong is a 80 yo who was referred to the wound center by her branch retail executive due to nonhealing right lower extremity ulcers. Initially noted in August, denies any known precipitating factor however, has had problematic right lower extremity swelling for months. Was given a prescription for compression stockings however has had difficulty wearing it. She states that she has been applying antibiotic ointment to the ulcers otherwise has left it open to air. History of diabetes mellitus which is said to be well controlled. She feels well otherwise and denies chills, fever, nausea, vomiting or change in bowel habit. Subjective Subjective Patient reports a lot of drainage from her ulcers which soaks her shoes. On diuretics prescribed by her PCP. Yet to receive lymphedema pump. Not very tolerant of compression. Ulcers with no significant improvement. Objective Data Objective Data Vital Signs: Vital Signs Temp Pulse Resp BP Pulse Ox 97.5 F L 75 18 124/54 H 95 02/26/21 11:55 02/26/21 11:55 02/25/21 00:39 02/26/21 11:55 02/25/21 00:39 Charges/Coding Procedures Integumentary [id number]: [id number] Marie subq tissue 20 sq cm/< Physical Exam Const alert, oriented x3 and no apparent distress General Appearance: cooperative and comfortable HEENT normocephalic and head/scalp atraumatic Neck full ROM and supple General: normal visual inspection Resp normal respiratory effort Effort and Inspection: able to speak in complete sentences Skin Wounds: wounds noted Neuro oriented x3 and CN's II-XII intact bilaterally Sensorium / Orientation: awake, alert and oriented to person Psych mental status grossly normal Appearance: grossly normal Attitude: calm Activity / Motor Behavior: appropriate eye contact Debridement Note Debridement Note Wound debrided: Right lower extremity ( Posteriomedial ) Type of Debridement: Excisional debridement Anesthesia Used: 4% Lidocaine Solution Depth: Down to and including healthy tissue and in the subcutaneous layer Percentage of wound debrided: 100 Instrument Used: 3mm curette Tissue Removed: Slough and devitalized tissue Severity: Fat Layer Exposed Amount of bleeding with debridement: Mild Bleeding Controlled with: Pressure Patient tolerated procedure: Patient tolerated procedure well Post-Debridement Measurements and Additional Note: Post-Debridement Measurements/Treatment WC - Nurse 1 - General Ulcer Assessment Start: 02/26/21 11:55 Freq: Status: Active Protocol: [id number] Activity Type Activity Date Activity User E-Sign Co-Sign Detail Recorded Client Recorded Date Recorded By Document 02/26/21 11:55 JADON [id number] 02/26/21 12:04 RI 02/26/21 11:55 WC - Today's Visit Information Type of service Follow-up Visit (Physician/MANAGER OF COMMUNITY RELATIONS ) Arrival Mode Wheelchair Patient Identification Verified (Name & Yes ) Patient Requires Transmission-Based No Precautions Vital Signs Temperature (97.8 F-99.1 F) 97.5 F L Temperature Source Temporal Pulse Rate (60-100) 75 Pulse Location Monitor Blood Pressure (90/60-120/80) 124/54 H Blood Pressure Mean (mm Hg) 77 Source Monitor History Since Last Visit- (Skip if this is Patient's initial visit) Have you changed medications since your No last visit? Any new allergies or adverse reactions No Had a fall/change in ADL's that may No increase risk of falls Signs or symptoms of abuse and/or No neglect since last visit Have you been in the hospital since your No last visit? Has dressing in place as prescribed Yes Has compression in place as prescribed N/A Has offloadiing in place as prescribed N/A Experienced any changes in pain level or No management Left Footwear Slipper Right Footwear Slipper - Nurse 1 - General Ulcer Measurement Start: 02/26/21 11:55 Freq: Status: Active Protocol: Activity Type Activity Date Activity User E-Sign Co-Sign Detail Recorded Client Recorded Date Recorded By Document 02/26/21 11:55 JADON [id number] 02/26/21 12:04 RI 02/26/21 11:55 Wound Center Nurse 1 #4 RIGHT LATERAL ANKLE -Combined with other wound No -Current Size (cm) - Length 2.5 -Current Size (cm) - Width 1.8 -Current Size (cm) - Depth 0.1 -Total Square Cm 4.50 -Photo Taken No -Tunneling No -Undermining/Tunneling No -Circular Undermining No -Exudate Amt Large -Exudate Type Serosanguineous -Wound Margin Distinct, Outline Attached -Granulation Amt None Present (0 %) -Slough/Fibrin Yes -Necrosis Amt Large (67-100%) -Necrotic Tissue Type Adherent Slough -Structure Exposed N/A -Texture (Richelle-wound Skin Appearance) No Abnormality, Assessed -Moisture (Richelle-wound Skin Appearance) Assessed, Weeping -Color (Richelle-wound Skin Appearance) No Abnormality, Assessed -Temperature (Richelle-wound Skin No Abnormality Appearance) (Pt Warm) -Tenderness on Palpation (Richelle-wound No Skin Appearance) -Ulcer Cleansing Rinsed/ Irrigated with Saline -Anesthetic Used 4% Lidocaine Solution,5% Lidocaine Gel #3 R Calf -Combined with other wound No -Current Size (cm) - Length 0.1 -Current Size (cm) - Width 0.1 -Current Size (cm) - Depth 0.1 -Total Square Cm 0.01 -Photo Taken No -Tunneling No -Undermining/Tunneling No -Circular Undermining No -Change in Wound Grade/Stage No -Exudate Amt None Present -Granulation Amt None Present (0 %) -Slough/Fibrin No -Necrosis Amt None Present (0 %) #1 R Ankle -Combined with other wound No -Current Size (cm) - Length 1.5 -Current Size (cm) - Width 0.5 -Current Size (cm) - Depth 0.1 -Total Square Cm 0.75 -Photo Taken No -Epithelialization None Present -Tunneling No -Undermining/Tunneling No -Circular Undermining No -Change in Wound Grade/Stage No -Exudate Amt Large -Exudate Type Serosanguineous -Wound Margin Distinct, Outline Attached -Granulation Amt None Present (0 %) -Slough/Fibrin Yes -Necrosis Amt Large (67-100%) -Necrotic Tissue Type Adherent Slough -Structure Exposed N/A -Texture (Richelle-wound Skin Appearance) Assessed -Moisture (Richelle-wound Skin Appearance) Assessed, Weeping -Color (Richelle-wound Skin Appearance) Assessed, Hemosiderin Staining -Temperature (Richelle-wound Skin No Abnormality Appearance) (Pt Warm) -Tenderness on Palpation (Richelle-wound No Skin Appearance) -Ulcer Cleansing Rinsed/ Irrigated with Saline -Anesthetic Used 4% Lidocaine Solution,5% Lidocaine Gel Lower Limb Edema Present No WC - Nurse 2 - General Ulcer CM Notes Start: 02/26/21 11:55 Freq: Status: Active Protocol: Activity Type Activity Date Activity User E-Sign Co-Sign Detail Recorded Client Recorded Date Recorded By Document 02/26/21 11:58 SC [id number] 02/26/21 12:06 SC 02/26/21 11:58 Wound Center Nurse 2 #4 RIGHT LATERAL ANKLE -Time 11:58 -Correct Patient Yes -Correct Side, Site, Position Yes -Correct Procedure Yes -Procedure Performed Yes -Type of Procedure Debridement -Clinical Debridement Subcutaneous -Tissue Removed Subcutaneous -Post Debridement (cm) - Length 1.9 -Post Debridement (cm) - Width 0.9 -Post Debridement (cm) - Depth 0.1 -Total Square (Post) (cm) 1.71 -Area of Debridement (cm) - Length 1.9 -Area of Debridement (cm) - Width 0.9 -Total Square (Area) (cm) 1.71 -Tunneling No -Undermining/Tunneling No -Circular Undermining No -Wound/Ulcer Outcome Not Healed -Ulcer Cleansing Rinsed/ Irrigated with Saline -Foul Odor after Cleansing No -Bioengineered Tissue No -Bleeding Controlled with Pressure -Offloading No -Treatment Response Procedure Tolerated Well -Debridement - Subq, 1st 20sq cm Yes #3 R Calf -Time 11:58 -Correct Patient Yes -Correct Side, Site, Position Yes -Correct Procedure Yes -Procedure Performed Yes -Type of Procedure Debridement -Clinical Debridement Subcutaneous -Tissue Removed Subcutaneous -Post Debridement (cm) - Length 3.1 -Post Debridement (cm) - Width 1.8 -Post Debridement (cm) - Depth 0.1 -Total Square (Post) (cm) 5.58 -Area of Debridement (cm) - Length 3.1 -Area of Debridement (cm) - Width 1.8 -Total Square (Area) (cm) 5.58 -Tunneling No -Undermining/Tunneling No -Circular Undermining No -Wound/Ulcer Outcome Not Healed -Ulcer Cleansing Rinsed/ Irrigated with Saline -Foul Odor after Cleansing No -Bioengineered Tissue No -Bleeding Controlled with Pressure -Offloading No -Treatment Response Procedure Tolerated Well -Debridement - Subq, 1st 20sq cm No #2 R medial LE -Time 11:59 -Correct Patient Yes -Correct Side, Site, Position Yes -Correct Procedure Yes -Procedure Performed Yes -Type of Procedure Debridement -Clinical Debridement Subcutaneous -Tissue Removed Subcutaneous -Post Debridement (cm) - Length 1.0 -Post Debridement (cm) - Width 0.6 -Post Debridement (cm) - Depth 0.1 -Total Square (Post) (cm) 0.60 -Area of Debridement (cm) - Length 1.0 -Area of Debridement (cm) - Width 0.6 -Total Square (Area) (cm) 0.60 -Tunneling No -Undermining/Tunneling No -Circular Undermining No -Wound/Ulcer Outcome Not Healed -Ulcer Cleansing Rinsed/ Irrigated with Saline -Foul Odor after Cleansing No -Bioengineered Tissue No -Bleeding Controlled with Pressure -Offloading No -Treatment Response Procedure Tolerated Well -Debridement - Subq, 1st 20sq cm No #1 R Ankle -Wound/Ulcer Outcome Converted - Nurse 3 - General Ulcer D/C NN Start: 02/26/21 11:55 Freq: Status: Active Protocol: Activity Type Activity Date Activity User E-Sign Co-Sign Detail Recorded Client Recorded Date Recorded By Document 02/26/21 12:25 DL [id number] 02/26/21 12:28 DL 02/26/21 12:25 Wound Care Nurse 3 #4 RIGHT LATERAL ANKLE -Ulcer Cleansing Rinsed/ Irrigated with Saline -Foul Odor after Cleansing No -Primary Dressing Applied Aquacel Extra -Primary Dressing Covered/Secured with Dry Gauze & Roll Gauze, Secured with Tape -Other Covering optilock -Aquacel Extra 1 #3 R Calf -Ulcer Cleansing Rinsed/ Irrigated with Saline -Foul Odor after Cleansing No -Other Dressing aquacel ex -Primary Dressing Covered/Secured with Dry Gauze & Roll Gauze, Secured with Tape -Other Covering optilock #2 R medial LE -Ulcer Cleansing Rinsed/ Irrigated with Saline -Foul Odor after Cleansing No -Other Dressing aquacel ex -Primary Dressing Covered/Secured with Dry Gauze & Roll Gauze, Secured with Tape -Other Covering opilock Left -Other tubigrip Treatment Response Procedure Tolerated Well Pain Scale: 0-10 Numeric Is Patient Pain Free? Yes WC - Visit Discharge Discharge Condition Stable Ambulatory Status Ambulatory Transportation Private Auto Accompanied by vincent Additional Wound Wound debrided: Right ankle ( medial ) Type of Debridement: Excisional debridement Anesthesia Used: 4% Lidocaine Solution Depth: Down to and including healthy tissue and in the subcutaneous layer Percentage of wound debrided: 100 Instrument Used: 3mm curette Tissue Removed: Slough and devitalized tissue Severity: Fat Layer Exposed Amount of bleeding with debridement: Mild Bleeding Controlled with: Pressure Patient tolerated procedure: Patient tolerated procedure well Additional Wound Wound debrided: Right lateral ankle Type of Debridement: Excisional debridement Anesthesia Used: 4% Lidocaine Solution Depth: Down to and including healthy tissue and in the subcutaneous layer Percentage of wound debrided: 100 Instrument Used: 3mm curette Tissue Removed: Slough and devitalized tissue Severity: Fat Layer Exposed Amount of bleeding with debridement: Mild Bleeding Controlled with: Pressure Patient tolerated procedure: Patient tolerated procedure well Assessment/Plan Assessment/Plan (1) Ulcer of right lower extremity with fat layer exposed: CODE(S): L97.912 - Non-pressure chronic ulcer of unspecified part of right lower leg with fat layer exposed (2) Type 2 diabetes mellitus: CODE(S): E11.9 - Type 2 diabetes mellitus without complications (3) Lymphedema of both lower extremities: CODE(S): I89.0 - Lymphedema, not elsewhere classified PLAN: Still significant right lower extremity edema with drainage noted. Debridement done as documented above, procedure was well-tolerated. Continue Aquacel extra with ABD or Keramax care over top. Change daily to twice daily depending on drainage. Has significant drainage from her ulcers. This will impede wound healing. Prescription for lymphedema pump has been sent but she is yet to hear from her insurance. She will immensely benefit from a lymphedema pump due to her persistent lymphedema. Again, compression and leg elevation discussed. Elevate lower extremities when seated and in bed. Exercise as tolerated. Optimal diabetes control again recommended. Increase intake of protein rich foods, vitamin C and zinc. Her questions were answered and she was advised to call with any further questions or concerns. Follow-up in 1 week. This note was generated with [employer] software. It may contain incorrect words, spelling, and punctuation that were not noted in checking the note before signing.
[2021-03-05 11:34] VITALS: BP 146/74; PULSE 86; RESP 19; TEMP 36.5
--- NOTE | 2021-03-05 13:04 | PN.PCM_ITS ---
History of Present Illness Date of Service: 03/05/21 Chief Complaint: Right Lower Extremity Ulcers History of Wound: Ms. Kwong is a 80 yo who was referred to the wound center by her wan support specialist due to nonhealing right lower extremity ulcers. Initially noted in August, denies any known precipitating factor however, has had problematic right lower extremity swelling for months. Was given a prescription for compression stockings however has had difficulty wearing it. She states that she has been applying antibiotic ointment to the ulcers otherwise has left it open to air. History of diabetes mellitus which is said to be well controlled. She feels well otherwise and denies chills, fever, nausea, vomiting or change in bowel habit. Subjective Subjective New left lower extremity ulceration following worsening left lower extremity edema. Was seen by vascular surgery and CircAid's were prescribed. Lymphedema pump has been approved by insurance however still pending approval by her wan support specialist. Prior ulcers with some worsening noted. Objective Data Objective Data Vital Signs: Vital Signs Temp Pulse Resp BP Pulse Ox 97.7 F L 86 19 H 146/74 H 95 03/05/21 11:34 03/05/21 11:34 03/05/21 11:34 03/05/21 11:34 02/25/21 00:39 Charges/Coding Procedures Integumentary [id number]: [id number] Marie subq tissue 20 sq cm/< Physical Exam Const alert, oriented x3 and no apparent distress General Appearance: cooperative and comfortable HEENT normocephalic and head/scalp atraumatic Neck full ROM and supple General: normal visual inspection Resp normal respiratory effort Effort and Inspection: able to speak in complete sentences Skin Wounds: wounds noted Neuro oriented x3 and CN's II-XII intact bilaterally Sensorium / Orientation: awake, alert and oriented to person Psych mental status grossly normal Appearance: grossly normal Attitude: calm Activity / Motor Behavior: appropriate eye contact Debridement Note Debridement Note Wound debrided: Right lower extremity (posterior medial) Type of Debridement: Excisional debridement Anesthesia Used: 4% Lidocaine Solution Depth: Down to and including healthy tissue Percentage of wound debrided: 100 Instrument Used: 5mm curette Tissue Removed: Slough and devitalized tissue Severity: Fat Layer Exposed Amount of bleeding with debridement: Mild Bleeding Controlled with: Pressure Patient tolerated procedure: Patient tolerated procedure well Post-Debridement Measurements and Additional Note: Post-Debridement Measur ements/Treatment WC - Nurse 1 - General Ulcer Assessment Start: 02/26/21 11:55 Freq: Status: Active Protocol: ROSE Activity Type Activity Date Activity User E-Sign Co-Sign Detail Recorded Client Recorded Date Recorded By Document 02/26/21 11:55 JADON [id number] 02/26/21 12:04 AK Document 03/05/21 11:34 JADON [id number] 03/05/21 11:45 JADON 02/26/21 03/05/21 11:55 11:34 WC - Today's Visit Information Type of service Follow-up Visit Follow-up Visit (Physician/TRANSLATOR AND INTERPRETER (Physician/TRANSLATOR AND INTERPRETER ) ) Arrival Mode Wheelchair Wheelchair Transfer Assistance None Patient Identification Verified (Name & Yes Yes ) Patient Requires Transmission-Based No No Precautions Safety Precautions NA Finger Stick Blood Sugar(mg/dl) (if 108 indicated): Blood Sugar Stated by Patient Vital Signs Temperature (97.8 F-99.1 F) 97.5 F L 97.7 F L Temperature Source Temporal Temporal Pulse Rate (60-100) 75 86 Pulse Location Monitor Monitor Respiratory Rate (12-18) 19 H Respiratory rate source Observation Blood Pressure (90/60-120/80) 124/54 H 146/74 H Blood Pressure Mean (mm Hg) 77 98 Source Monitor Monitor Position Sitting Blood Pressure Location Right Arm History Since Last Visit- (Skip if this is Patient's initial visit) Have you changed medications since your No Yes last visit? Any new allergies or adverse reactions No No Had a fall/change in ADL's that may No No increase risk of falls Signs or symptoms of abuse and/or No No neglect since last visit Have you been in the hospital since your No No last visit? Has dressing in place as prescribed Yes Yes Has compression in place as prescribed N/A Yes Has offloadiing in place as prescribed N/A N/A Experienced any changes in pain level or No No management Left Footwear Slipper Regular Shoe Right Footwear Slipper Regular Shoe Pain Scale: 0-10 Numeric Is Patient Pain Free? Yes ONESIMO - Nurse 1 - General Ulcer Measurement Start: 02/26/21 11:55 Freq: Status: Active Protocol: Activity Type Activity Date Activity User E-Sign Co-Sign Detail Recorded Client Recorded Date Recorded By Document 02/26/21 11:55 JADON [id number] 02/26/21 12:04 AK Document 03/05/21 11:34 AK [id number] 03/05/21 11:45 AK 02/26/21 03/05/21 11:55 11:34 Wound Center Nurse 1 #5 left superior ankle -Current Size (cm) - Length 1 -Current Size (cm) - Width 1 -Current Size (cm) - Depth 0.1 -Total Square Cm 1 -Exudate Amt Large -Exudate Type Serosanguineous -Wound Margin Distinct, Outline Attached -Granulation Amt Medium (34-66%) -Slough/Fibrin Yes -Necrosis Amt Medium (34-66%) -Necrotic Tissue Type Adherent Slough -Moisture (Richelle-wound Skin Appearance) Weeping -Color (Richelle-wound Skin Appearance) Erythema -Temperature (Richelle-wound Skin No Abnormality Appearance) (Pt Warm) -Tenderness on Palpation (Richelle-wound Yes Skin Appearance) -Ulcer Cleansing Rinsed/ Irrigated with Saline -Foul Odor after Cleansing No -Anesthetic Used 5% Lidocaine Gel #4 RIGHT LATERAL ANKLE -Combined with other wound No -Current Size (cm) - Length 2.5 1.7 -Current Size (cm) - Width 1.8 1 -Current Size (cm) - Depth 0.1 0.1 -Total Square Cm 4.50 1.7 -Photo Taken No -Tunneling No -Undermining/Tunneling No -Circular Undermining No -Exudate Amt Large Medium -Exudate Type Serosanguineous Serosanguineous -Wound Margin Distinct, Distinct, Outline Outline Attached Attached -Granulation Amt None Present (0 Medium (34-66%) %) -Granulation Quality Pale -Slough/Fibrin Yes Yes -Necrosis Amt Large (67-100%) Large (67-100%) -Necrotic Tissue Type Adherent Slough Adherent Slough -Structure Exposed N/A -Texture (Richelle-wound Skin Appearance) No Abnormality, Assessed -Moisture (Richelle-wound Skin Appearance) Assessed, Weeping Weeping -Color (Richelle-wound Skin Appearance) No Abnormality, Erythema Assessed -Temperature (Richelle-wound Skin No Abnormality No Abnormality Appearance) (Pt Warm) (Pt Warm) -Tenderness on Palpation (Richelle-wound No Yes Skin Appearance) -Ulcer Cleansing Rinsed/ Rinsed/ Irrigated with Irrigated with Saline Saline -Anesthetic Used 4% Lidocaine 5% Lidocaine Solution,5% Gel Lidocaine Gel #3 R posterior Calf -Combined with other wound No -Current Size (cm) - Length 0.1 0.1 -Current Size (cm) - Width 0.1 0.1 -Current Size (cm) - Depth 0.1 0.1 -Total Square Cm 0.01 0.01 -Photo Taken No -Tunneling No -Undermining/Tunneling No -Circular Undermining No -Change in Wound Grade/Stage No -Exudate Amt None Present Medium -Exudate Type Serosanguineous -Wound Margin Distinct, Outline Attached -Granulation Amt None Present (0 Medium (34-66%) %) -Granulation Quality Pale -Slough/Fibrin No Yes -Necrosis Amt None Present (0 Large (67-100%) %) -Necrotic Tissue Type Adherent Slough -Texture (Richelle-wound Skin Appearance) Assessed -Moisture (Richelle-wound Skin Appearance) Weeping -Color (Richelle-wound Skin Appearance) Erythema -Temperature (Richelle-wound Skin No Abnormality Appearance) (Pt Warm) -Tenderness on Palpation (Richelle-wound Yes Skin Appearance) -Ulcer Cleansing Rinsed/ Irrigated with Saline -Anesthetic Used 5% Lidocaine Gel #2 R medial LE -Current Size (cm) - Length 0.5 -Current Size (cm) - Width 0.5 -Current Size (cm) - Depth 0.1 -Total Square Cm 0.25 -Exudate Amt Large -Exudate Type Serosanguineous -Wound Margin Distinct, Outline Attached -Granulation Amt Large (67-100%) -Granulation Quality Red -Slough/Fibrin Yes -Necrosis Amt Large (67-100%) -Necrotic Tissue Type Adherent Slough -Moisture (Richelle-wound Skin Appearance) Weeping -Color (Richelle-wound Skin Appearance) Erythema -Temperature (Richelle-wound Skin No Abnormality Appearance) (Pt Warm) -Tenderness on Palpation (Richelle-wound Yes Skin Appearance) -Ulcer Cleansing Rinsed/ Irrigated with Saline -Anesthetic Used 5% Lidocaine Gel #1 Right medial Ankle -Combined with other wound No -Current Size (cm) - Length 1.5 -Current Size (cm) - Width 0.5 -Current Size (cm) - Depth 0.1 -Total Square Cm 0.75 -Photo Taken No -Epithelialization None Present -Tunneling No -Undermining/Tunneling No -Circular Undermining No -Change in Wound Grade/Stage No -Exudate Amt Large -Exudate Type Serosanguineous -Wound Margin Distinct, Outline Attached -Granulation Amt None Present (0 %) -Slough/Fibrin Yes -Necrosis Amt Large (67-100%) -Necrotic Tissue Type Adherent Slough -Structure Exposed N/A -Texture (Richelle-wound Skin Appearance) Assessed -Moisture (Richelle-wound Skin Appearance) Assessed, Weeping -Color (Richelle-wound Skin Appearance) Assessed, Hemosiderin Staining -Temperature (Richelle-wound Skin No Abnormality Appearance) (Pt Warm) -Tenderness on Palpation (Richelle-wound No Skin Appearance) -Ulcer Cleansing Rinsed/ Irrigated with Saline -Anesthetic Used 4% Lidocaine Solution,5% Lidocaine Gel Lower Limb Edema Present No Right Calf (cm) 56 Right Ankle (cm) 39 Left Calf (cm) 49.5 Left Ankle (cm) 32 WC - Nurse 2 - General Ulcer CM Notes Start: 02/26/21 11:55 Freq: Status: Active Protocol: Activity Type Activity Date Activity User E-Sign Co-Sign Detail Recorded Client Recorded Date Recorded By Document 02/26/21 11:58 MA [id number] 02/26/21 12:06 MA Document 03/05/21 11:53 MA [id number] 03/05/21 12:24 MA 02/26/21 03/05/21 11:58 11:53 Wound Center Nurse 2 #5 left superior ankle -Time 11:53 -Correct Patient Yes -Correct Side, Site, Position Yes -Correct Procedure Yes -Procedure Performed Yes -Type of Procedure Debridement -Clinical Debridement Subcutaneous -Tissue Removed Subcutaneous -Post Debridement (cm) - Length 2.5 -Post Debridement (cm) - Width 1.5 -Post Debridement (cm) - Depth 0.1 -Total Square (Post) (cm) 3.75 -Area of Debridement (cm) - Length 2.5 -Area of Debridement (cm) - Width 1.5 -Total Square (Area) (cm) 3.75 -Tunneling No -Undermining/Tunneling No -Circular Undermining No -Wound/Ulcer Outcome Not Healed -Ulcer Cleansing Rinsed/ Irrigated with Saline -Foul Odor after Cleansing No -Bioengineered Tissue No -Bleeding Controlled with Pressure -Treatment Response Procedure Tolerated Well -Debridement - Subq, 1st 20sq cm Yes #4 RIGHT LATERAL ANKLE -Time 11:58 11:53 -Correct Patient Yes Yes -Correct Side, Site, Position Yes Yes -Correct Procedure Yes Yes -Procedure Performed Yes Yes -Type of Procedure Debridement Debridement -Clinical Debridement Subcutaneous Subcutaneous -Tissue Removed Subcutaneous Subcutaneous -Post Debridement (cm) - Length 1.9 2.0 -Post Debridement (cm) - Width 0.9 1.0 -Post Debridement (cm) - Depth 0.1 0.1 -Total Square (Post) (cm) 1.71 2.00 -Area of Debridement (cm) - Length 1.9 2.0 -Area of Debridement (cm) - Width 0.9 1.0 -Total Square (Area) (cm) 1.71 2.00 -Tunneling No No -Undermining/Tunneling No No -Circular Undermining No No -Wound/Ulcer Outcome Not Healed Not Healed -Ulcer Cleansing Rinsed/ Rinsed/ Irrigated with Irrigated with Saline Saline -Foul Odor after Cleansing No No -Bioengineered Tissue No No -Bleeding Controlled with Pressure Pressure -Offloading No No -Treatment Response Procedure Procedure Tolerated Well Tolerated Well -Debridement - Subq, 1st 20sq cm Yes No #3 R posterior Calf -Time 11 11:54 -Correct Patient Yes Yes -Correct Side, Site, Position Yes Yes -Correct Procedure Yes Yes -Procedure Performed Yes Yes -Type of Procedure Debridement Debridement -Clinical Debridement Subcutaneous Subcutaneous -Tissue Removed Subcutaneous Subcutaneous -Post Debridement (cm) - Length 3.1 1.5 -Post Debridement (cm) - Width 1.8 2.0 -Post Debridement (cm) - Depth 0.1 0.1 -Total Square (Post) (cm) 5.58 3.00 -Area of Debridement (cm) - Length 3.1 1.5 -Area of Debridement (cm) - Width 1.8 2.0 -Total Square (Area) (cm) 5.58 3.00 -Tunneling No No -Undermining/Tunneling No No -Circular Undermining No No -Wound/Ulcer Outcome Not Healed Not Healed -Ulcer Cleansing Rinsed/ Rinsed/ Irrigated with Irrigated with Saline Saline -Foul Odor after Cleansing No No -Bioengineered Tissue No No -Bleeding Controlled with Pressure Pressure -Offloading No No -Treatment Response Procedure Procedure Tolerated Well Tolerated Well -Debridement - Subq, 1st 20sq cm No No #2 R medial LE -Time 11:59 11:55 -Correct Patient Yes Yes -Correct Side, Site, Position Yes Yes -Correct Procedure Yes Yes -Procedure Performed Yes Yes -Type of Procedure Debridement Debridement -Clinical Debridement Subcutaneous Subcutaneous -Tissue Removed Subcutaneous Subcutaneous -Post Debridement (cm) - Length 1.0 0.5 -Post Debridement (cm) - Width 0.6 0.7 -Post Debridement (cm) - Depth 0.1 0.1 -Total Square (Post) (cm) 0.60 0.35 -Area of Debridement (cm) - Length 1.0 0.5 -Area of Debridement (cm) - Width 0.6 0.7 -Total Square (Area) (cm) 0.60 0.35 -Tunneling No No -Undermining/Tunneling No No -Circular Undermining No No -Wound/Ulcer Outcome Not Healed Not Healed -Ulcer Cleansing Rinsed/ Rinsed/ Irrigated with Irrigated with Saline Saline -Foul Odor after Cleansing No No -Bioengineered Tissue No No -Bleeding Controlled with Pressure Pressure -Offloading No No -Treatment Response Procedure Tolerated Well -Debridement - Subq, 1st 20sq cm No No #1 Right medial Ankle -Time 12:22 -Correct Patient Yes -Correct Side, Site, Position Yes -Correct Procedure Yes -Procedure Performed Yes -Type of Procedure Debridement -Clinical Debridement Subcutaneous -Tissue Removed Subcutaneous -Post Debridement (cm) - Length 3.2 -Post Debridement (cm) - Width 1.5 -Post Debridement (cm) - Depth 0.1 -Total Square (Post) (cm) 4.80 -Area of Debridement (cm) - Length 3.2 -Area of Debridement (cm) - Width 1.5 -Total Square (Area) (cm) 4.80 -Tunneling No -Undermining/Tunneling No -Circular Undermining No -Wound/Ulcer Outcome Converted Not Healed -Ulcer Cleansing Rinsed/ Irrigated with Saline -Foul Odor after Cleansing No -Bioengineered Tissue No -Bleeding Controlled with Pressure -Offloading No -Treatment Response Procedure Tolerated Well -Debridement - Subq, 20sq cm No WC - Nurse 3 - General Ulcer D/C NN Start: 02/26/21 11:55 Freq: Status: Active Protocol: Activity Type Activity Date Activity User E-Sign Co-Sign Detail Recorded Client Recorded Date Recorded By Document 02/26/21 12:25 DL [id number] 02/26/21 12:28 DL Document 03/05/21 12:11 ML [id number] 03/05/21 12:14 ML Document 03/05/21 12:19 ML [id number] 03/05/21 12:19 ML 02/26/21 03/05/21 03/05/21 12:25 12:11 12:19 Wound Care Nurse 3 #5 left superior ankle -Primary Dressing Applied Aquacel Extra -Other Dressing abd,kerlex, super absorbent -Aquacel Extra 0 #4 RIGHT LATERAL ANKLE -Ulcer Cleansing Rinsed/ Rinsed/ Irrigated with Irrigated with Saline Saline -Foul Odor after Cleansing No -Primary Dressing Applied Aquacel Extra Aquacel Extra -Other Dressing abd,super absorbent, kerlex -Primary Dressing Covered/Secured with Dry Gauze & Dry Gauze & Roll Gauze, Roll Gauze, Secured with Secured with Tape Tape -Other Covering optilock -Aquacel Extra 1 0 #3 R posterior Calf -Ulcer Cleansing Rinsed/ Rinsed/ Irrigated with Irrigated with Saline Saline -Foul Odor after Cleansing No -Primary Dressing Applied Aquacel Extra -Other Dressing aquacel ex abd,kerlex, super absorbent -Primary Dressing Covered/Secured with Dry Gauze & Secured with Roll Gauze, Tape Secured with Tape -Other Covering optilock -Aquacel Extra 0 #2 R medial LE -Ulcer Cleansing Rinsed/ Rinsed/ Irrigated with Irrigated with Saline Saline -Foul Odor after Cleansing No -Primary Dressing Applied Aquacel Extra -Other Dressing aquacel ex abd,kerlex, super absorbent -Primary Dressing Covered/Secured with Dry Gauze & Secured with Roll Gauze, Tape Secured with Tape -Other Covering opilock -Aquacel Extra 0 right leg -Size F ($) 1 Left -Other tubigrip Treatment Response Procedure Tolerated Well Pain Scale: 0-10 Numeric Is Patient Pain Free? Yes WC - Visit Discharge Discharge Condition Stable Ambulatory Status Ambulatory Transportation Private Auto Accompanied by vincent Additional Wound Wound debrided: Right lower extremity posterior ( Calf ) Type of Debridement: Excisional debridement Anesthesia Used: 4% Lidocaine Solution Depth: Down to and including healthy tissue Percentage of wound debrided: 100 Instrument Used: 5mm curette Tissue Removed: Slough and devitalized tissue Severity: Fat Layer Exposed Amount of bleeding with debridement: Mild Bleeding Controlled with: Pressure Patient tolerated procedure: Patient tolerated procedure well Additional Wound Wound debrided: Right Medial Ankle Type of Debridement: Excisional debridement Anesthesia Used: 4% Lidocaine Solution Depth: in the subcutaneous layer Percentage of wound debrided: 100 Instrument Used: 5mm curette Tissue Removed: Slough and devitalized tissue Severity: Fat Layer Exposed Amount of bleeding with debridement: Mild Bleeding Controlled with: Pressure Patient tolerated procedure: Patient tolerated procedure well Additional Wound Wound debrided: Right lateral ankle Type of Debridement: Excisional debridement Anesthesia Used: 4% Lidocaine Solution Depth: Down to and including healthy tissue and in the subcutaneous layer Percentage of wound debrided: 100 Instrument Used: 3mm curette Tissue Removed: Slough and devitalized tissue Severity: Fat Layer Exposed Amount of bleeding with debridement: Mild Bleeding Controlled with: Pressure Patient tolerated procedure: Patient tolerated procedure well Assessment/Plan Assessment/Plan (1) Ulcer of right lower extremity with fat layer exposed: CODE(S): L97.912 - Non-pressure chronic ulcer of unspecified part of right lower leg with fat layer exposed (2) Ulcer of left lower extremity with fat layer exposed: CODE(S): L97.922 - Non-pressure chronic ulcer of unspecified part of left lower leg with fat layer exposed (3) Type 2 diabetes mellitus: CODE(S): E11.9 - Type 2 diabetes mellitus without complications (4) Lymphedema of both lower extremities: CODE(S): I89.0 - Lymphedema, not elsewhere classified PLAN: Still significant right lower extremity edema. Now worsening left lower extremity edema and new left lower extremity ulcer as well. Debridement done as documented above, procedure was well-tolerated. Continue Aquacel extra with ABD or Keramax care over top. Change daily to twice daily depending on drainage. Has significant drainage from her ulcers. This will impede wound healing. Lymphedema pump has been impaired by insurance however this is now pending clearance from her wan support specialist. Has an echo scheduled following which she will be reassessed. Has been prescribed CircAid's by her vascular surgeon, again, compression and leg elevation discussed. Elevate lower extremities when seated and in bed. Exercise as tolerated. Optimal diabetes control again recommended. Increase intake of protein rich foods, vitamin C and zinc. Her questions were answered and she was advised to call with any further questions or concerns. Follow-up in 1 week. This note was generated with Dragon dictation software. It may contain incorrect words, spelling, and punctuation that were not noted in checking the note before signing.
[2021-03-12 11:13] VITALS: BP 132/50; PULSE 65; RESP 24; TEMP 36.4
--- NOTE | 2021-03-12 13:37 | PCM.WC.PN ---
History of Present Illness Date of Service: 03/12/21 Chief Complaint: Right Lower Extremity Ulcers History of Wound: Ms. Kwong is a 80 yo who was referred to the wound center by her phone representative due to nonhealing right lower extremity ulcers. Initially noted in August, denies any known precipitating factor however, has had problematic right lower extremity swelling for months. Was given a prescription for compression stockings however has had difficulty wearing it. She states that she has been applying antibiotic ointment to the ulcers otherwise has left it open to air. History of diabetes mellitus which is said to be well controlled. She feels well otherwise and denies chills, fever, nausea, vomiting or change in bowel habit. Subjective Subjective She states that she has had an echo done but yet to hear from her phone representative and so has not gotten or started use of the lymphedema pump. Has also not gotten the juxta light/CircAid's due to insurance coverage. Still has significant swelling with worsening lower extremity ulcers. Objective Data Objective Data Vital Signs: Vital Signs Temp Pulse Resp BP Pulse Ox 97.5 F L 65 24 H 132/50 H 95 03/12/21 11:13 03/12/21 11:13 03/12/21 11:13 03/12/21 11:13 02/25/21 00:39 Charges/Coding Procedures Integumentary [id number]: [id number] Marie subq tissue 20 sq cm/< Add On Codes: [id number] Marie subq tissue add-on Physical Exam Const alert, oriented x3 and no apparent distress General Appearance: cooperative and comfortable HEENT normocephalic and head/scalp atraumatic Neck full ROM and supple General: normal visual inspection Resp normal respiratory effort Effort and Inspection: able to speak in complete sentences Skin Wounds: wounds noted Neuro oriented x3 and CN's II-XII intact bilaterally Sensorium / Orientation: awake, alert and oriented to person Psych mental status grossly normal Appearance: grossly normal Attitude: calm Activity / Motor Behavior: appropriate eye contact Debridement Note Debridement Note Wound debrided: Left lower extremity (lateral) Type of Debridement: Excisional debridement Anesthesia Used: 4% Lidocaine Solution Depth: Down to and including healthy tissue and in the subcutaneous layer Percentage of wound debrided: 100 Instrument Used: 5mm curette Tissue Removed: Slough and devitalized tissue Severity: Fat Layer Exposed Amount of bleeding with debridement: Mild Bleeding Controlled with: Pressure Patient tolerated procedure: Patient tolerated procedure well Post-Debridement Measurements and Additional Note: Post-Debridement Measurements/Treatment WC - Nurse 1 - General Ulcer Assessment Start: 02/26/21 11:55 Freq: Status: Active Protocol: ROSE Activity Type Activity Date Activity User E-Sign Co-Sign Detail Recorded Client Recorded Date Recorded By Document 02/26/21 11:55 AK [id number] 02/26/21 12:04 AK Document 03/05/21 11:34 AK [id number] 03/05/21 11:45 AK Document 03/12/21 11:13 DL [id number] 03/12/21 11:31 DL 02/26/21 03/05/21 03/12/21 11:55 11:34 11:13 WC - Today's Visit Information Type of service Follow-up Visit Follow-up Visit Follow-up Visit (Physician/FORENSIC EXAMINER (Physician/FORENSIC EXAMINER (Physician/FORENSIC EXAMINER ) ) ) Arrival Mode Wheelchair Wheelchair Wheelchair Transfer Assistance None Manual Transfer Assist (Other) x2 Patient Identification Verified (Name & Yes Yes Yes ) Patient Requires Transmission-Based No No No Precautions Safety Precautions NA Finger Stick Blood Sugar(mg/dl) (if 108 114 indicated): Blood Sugar Stated by Stated by Patient Patient Vital Signs Temperature (97.8 F-99.1 F) 97.5 F L 97.7 F L 97.5 F L Temperature Source Temporal Temporal Temporal Pulse Rate (60-100) 75 86 65 Pulse Location Monitor Monitor Monitor Respiratory Rate (12-18) 19 H 24 H Respiratory rate source Observation Observation Blood Pressure (90/60-120/80) 124/54 H 146/74 H 132/50 H Blood Pressure Mean (mm Hg) 77 98 77 Source Monitor Monitor Monitor Position Sitting Blood Pressure Location Right Arm History Since Last Visit- (Skip if this is Patient's initial visit) Have you changed medications since your No Yes No last visit? Any new allergies or adverse reactions No No No Had a fall/change in ADL's that may No No No increase risk of falls Signs or symptoms of abuse and/or No No No neglect since last visit Have you been in the hospital since your No No No last visit? Has dressing in place as prescribed Yes Yes Yes Has compression in place as prescribed N/A Yes Yes Has offloadiing in place as prescribed N/A N/A Yes Experienced any changes in pain level or No No No management Left Footwear Slipper Regular Shoe Slipper Right Footwear Slipper Regular Shoe Slipper Pain Scale: 0-10 Numeric Is Patient Pain Free? Yes Yes WC - Nurse 1 - General Ulcer Measurement Start: 02/26/21 11:55 Freq: Status: Active Protocol: Activity Type Activity Date Activity User E-Sign Co-Sign Detail Recorded Client Recorded Date Recorded By Document 02/26/21 11:55 CT [id number] 02/26/21 12:04 AK Document 03/05/21 11:34 AK [id number] 03/05/21 11:45 AK Document 03/12/21 11:13 DL [id number] 03/12/21 11:31 DL 02/26/21 03/05/21 03/12/21 11:55 11:34 11:13 Wound Center Nurse 1 #5 left superior ankle -Combined with other wound No -Current Size (cm) - Length 1 2 -Current Size (cm) - Width 1 0.4 -Current Size (cm) - Depth 0.1 0.1 -Total Square Cm 1 0.8 -Photo Taken No -Epithelialization None Present -Tunneling No -Undermining/Tunneling No -Circular Undermining No -Exudate Amt Large Medium -Exudate Type Serosanguineous Serosanguineous -Wound Margin Distinct, Distinct, Outline Outline Attached Attached -Granulation Amt Medium (34-66%) Medium (34-66%) -Granulation Quality [place] -Slough/Fibrin Yes Yes -Necrosis Amt Medium (34-66%) Medium (34-66%) -Necrotic Tissue Type Adherent Slough Adherent Slough -Texture (Richelle-wound Skin Appearance) Assessed, Scarring -Moisture (Richelle-wound Skin Appearance) Weeping Assessed, Maceration -Color (Richelle-wound Skin Appearance) Erythema Assessed, Erythema,Palor -Temperature (Richelle-wound Skin No Abnormality No Abnormality Appearance) (Pt Warm) (Pt Warm) -Tenderness on Palpation (Richelle-wound Yes Yes Skin Appearance) -Ulcer Cleansing Rinsed/ Rinsed/ Irrigated with Irrigated with Saline Saline -Foul Odor after Cleansing No No -Anesthetic Used 5% Lidocaine 4% Lidocaine Gel Solution #4 RIGHT LATERAL ANKLE -Combined with other wound No No -Current Size (cm) - Length 2.5 1.7 1.5 -Current Size (cm) - Width 1.8 1 1 -Current Size (cm) - Depth 0.1 0.1 0.1 -Total Square Cm 4.50 1.7 1.5 -Photo Taken No No -Epithelialization None Present -Tunneling No No -Undermining/Tunneling No No -Circular Undermining No No -Exudate Amt Large Medium Medium -Exudate Type Serosanguineous Serosanguineous Serosanguineous -Wound Margin Distinct, Distinct, Distinct, Outline Outline Outline Attached Attached Attached -Granulation Amt None Present (0 Medium (34-66%) Medium (34-66%) %) -Granulation Quality Pale [place] -Slough/Fibrin Yes Yes Yes -Necrosis Amt Large (67-100%) Large (67-100%) Medium (34-66%) -Necrotic Tissue Type Adherent Slough Adherent Slough Adherent Slough -Structure Exposed N/A -Texture (Richelle-wound Skin Appearance) No Abnormality, Assessed, Assessed Scarring -Moisture (Richelle-wound Skin Appearance) Assessed, Weeping Assessed, Weeping Maceration -Color (Richelle-wound Skin Appearance) No Abnormality, Erythema Assessed, Assessed Erythema,Palor -Temperature (Richelle-wound Skin No Abnormality No Abnormality No Abnormality Appearance) (Pt Warm) (Pt Warm) (Pt Warm) -Tenderness on Palpation (Richelle-wound No Yes Yes Skin Appearance) -Ulcer Cleansing Rinsed/ Rinsed/ Rinsed/ Irrigated with Irrigated with Irrigated with Saline Saline Saline -Foul Odor after Cleansing No -Anesthetic Used 4% Lidocaine 5% Lidocaine 4% Lidocaine Solution,5% Gel Solution Lidocaine Gel #3 R posterior LE -Combined with other wound No No -Current Size (cm) - Length 0.1 0.1 2 -Current Size (cm) - Width 0.1 0.1 2 -Current Size (cm) - Depth 0.1 0.1 0.1 -Total Square Cm 0.01 0.01 4 -Photo Taken No No -Epithelialization None Present -Tunneling No No -Undermining/Tunneling No No -Circular Undermining No No -Change in Wound Grade/Stage No -Exudate Amt None Present Medium Medium -Exudate Type Serosanguineous Serosanguineous -Wound Margin Distinct, Distinct, Outline Outline Attached Attached -Granulation Amt None Present (0 Medium (34-66%) Medium (34-66%) %) -Granulation Quality Pale [place] -Slough/Fibrin No Yes Yes -Necrosis Amt None Present (0 Large (67-100%) Medium (34-66%) %) -Necrotic Tissue Type Adherent Slough Adherent Slough -Texture (Richelle-wound Skin Appearance) Assessed Assessed, Excoriation -Moisture (Richelle-wound Skin Appearance) Weeping Assessed, Maceration -Color (Richelle-wound Skin Appearance) Erythema Assessed, Erythema,Palor -Temperature (Richelle-wound Skin No Abnormality No Abnormality Appearance) (Pt Warm) (Pt Warm) -Tenderness on Palpation (Richelle-wound Yes Yes Skin Appearance) -Ulcer Cleansing Rinsed/ Rinsed/ Irrigated with Irrigated with Saline Saline -Foul Odor after Cleansing No -Anesthetic Used 5% Lidocaine 4% Lidocaine Gel Solution #2 R medial LE -Combined with other wound No -Current Size (cm) - Length 0.5 6 -Current Size (cm) - Width 0.5 5 -Current Size (cm) - Depth 0.1 0.1 -Total Square Cm 0.25 30 -Photo Taken No -Epithelialization None Present -Tunneling No -Undermining/Tunneling No -Circular Undermining No -Exudate Amt Large Medium -Exudate Type Serosanguineous Serosanguineous -Wound Margin Distinct, Distinct, Outline Outline Attached Attached -Granulation Amt Large (67-100%) Medium (34-66%) -Granulation Quality [place] -Slough/Fibrin Yes Yes -Necrosis Amt Large (67-100%) Medium (34-66%) -Necrotic Tissue Type Adherent Slough Adherent Slough -Texture (Richelle-wound Skin Appearance) Assessed, Scarring -Moisture (Richelle-wound Skin Appearance) Weeping Assessed, Maceration -Color (Richelle-wound Skin Appearance) Erythema Assessed, Erythema,Palor -Temperature (Richelle-wound Skin No Abnormality No Abnormality Appearance) (Pt Warm) (Pt Warm) -Tenderness on Palpation (Richelle-wound Yes No Skin Appearance) -Ulcer Cleansing Rinsed/ Rinsed/ Irrigated with Irrigated with Saline Saline -Foul Odor after Cleansing No -Anesthetic Used 5% Lidocaine 4% Lidocaine Gel Solution #1 Right medial Ankle -Combined with other wound No No -Current Size (cm) - Length 1.5 0.6 -Current Size (cm) - Width 0.5 0.5 -Current Size (cm) - Depth 0.1 0.1 -Total Square Cm 0.75 0.30 -Photo Taken No No -Epithelialization None Present None Present -Tunneling No No -Undermining/Tunneling No No -Circular Undermining No No -Change in Wound Grade/Stage No -Exudate Amt Large Medium -Exudate Type Serosanguineous Serosanguineous -Wound Margin Distinct, Distinct, Outline Outline Attached Attached -Granulation Amt None Present (0 Medium (34-66%) %) -Granulation Quality [place] -Slough/Fibrin Yes Yes -Necrosis Amt Large (67-100%) Medium (34-66%) -Necrotic Tissue Type Adherent Slough Adherent Slough -Structure Exposed N/A -Texture (Richelle-wound Skin Appearance) Assessed Assessed, Scarring -Moisture (Richelle-wound Skin Appearance) Assessed, Assessed, Weeping Maceration -Color (Richelle-wound Skin Appearance) Assessed, Assessed, Hemosiderin Erythema,Palor Staining -Temperature (Richelle-wound Skin No Abnormality No Abnormality Appearance) (Pt Warm) (Pt Warm) -Tenderness on Palpation (Richelle-wound No Yes Skin Appearance) -Ulcer Cleansing Rinsed/ Rinsed/ Irrigated with Irrigated with Saline Saline -Foul Odor after Cleansing No -Anesthetic Used 4% Lidocaine 4% Lidocaine Solution,5% Solution Lidocaine Gel Lower Limb Edema Present No Yes Right Calf (cm) 56 56 Right Ankle (cm) 39 29.3 Left Calf (cm) 49.5 47 Left Ankle (cm) 32 6.2 WC - Nurse 2 - General Ulcer CM Notes Start: 02/26/21 11:55 Freq: Status: Active Protocol: Activity Type Activity Date Activity User E-Sign Co-Sign Detail Recorded Client Recorded Date Recorded By Document 02/26/21 11:58 OK [id number] 02/26/21 12:06 OK Document 03/05/21 11:53 MT [id number] 03/05/21 12:24 MT Document 03/12/21 11:44 MW [id number] 03/12/21 11:57 MW 02/26/21 03/05/21 03/12/21 11:58 11:53 11:44 Wound Center Nurse 2 #6 Right medial/posterior LE cluster -Time 11:55 -Correct Patient Yes -Correct Side, Site, Position Yes -Correct Procedure Yes -Procedure Performed Yes -Type of Procedure Debridement -Clinical Debridement Subcutaneous -Tissue Removed Subcutaneous -Post Debridement (cm) - Length 8.5 -Post Debridement (cm) - Width 9.0 -Post Debridement (cm) - Depth 0.1 -Total Square (Post) (cm) 76.50 -Area of Debridement (cm) - Length 8.5 -Area of Debridement (cm) - Width 9.0 -Total Square (Area) (cm) 76.50 -Tunneling No -Undermining/Tunneling No -Circular Undermining No -Wound/Ulcer Outcome Not Healed -Ulcer Cleansing Rinsed/ Irrigated with Saline -Foul Odor after Cleansing No -Bioengineered Tissue No -Bleeding Controlled with Pressure -Offloading No -Treatment Response Procedure Tolerated Well -Debridement - Subq, 1st 20sq cm Yes -Debridement, SubQ, ea addt'l 20sq cm 4 or part thereof #5 left superior ankle -Time 11:53 11:45 -Correct Patient Yes Yes -Correct Side, Site, Position Yes Yes -Correct Procedure Yes Yes -Procedure Performed Yes Yes -Type of Procedure Debridement Debridement -Clinical Debridement Subcutaneous Subcutaneous -Tissue Removed Subcutaneous Subcutaneous -Post Debridement (cm) - Length 2.5 2.5 -Post Debridement (cm) - Width 1.5 1.5 -Post Debridement (cm) - Depth 0.1 0.1 -Total Square (Post) (cm) 3.75 3.75 -Area of Debridement (cm) - Length 2.5 2.5 -Area of Debridement (cm) - Width 1.5 1.5 -Total Square (Area) (cm) 3.75 3.75 -Tunneling No No -Undermining/Tunneling No No -Circular Undermining No No -Wound/Ulcer Outcome Not Healed Not Healed -Ulcer Cleansing Rinsed/ Rinsed/ Irrigated with Irrigated with Saline Saline -Foul Odor after Cleansing No No -Bioengineered Tissue No No -Bleeding Controlled with Pressure Pressure -Offloading No -Treatment Response Procedure Procedure Tolerated Well Tolerated Well -Debridement - Subq, 1st 20sq cm Yes No #4 RIGHT LATERAL ANKLE -Time 11:58 11:53 11:45 -Correct Patient Yes Yes Yes -Correct Side, Site, Position Yes Yes Yes -Correct Procedure Yes Yes Yes -Procedure Performed Yes Yes Yes -Type of Procedure Debridement Debridement Debridement -Clinical Debridement Subcutaneous Subcutaneous Subcutaneous -Tissue Removed Subcutaneous Subcutaneous Subcutaneous -Post Debridement (cm) - Length 1.9 2.0 1.5 -Post Debridement (cm) - Width 0.9 1.0 1.0 -Post Debridement (cm) - Depth 0.1 0.1 0.1 -Total Square (Post) (cm) 1.71 2.00 1.50 -Area of Debridement (cm) - Length 1.9 2.0 1.5 -Area of Debridement (cm) - Width 0.9 1.0 1.0 -Total Square (Area) (cm) 1.71 2.00 1.50 -Tunneling No No No -Undermining/Tunneling No No No -Circular Undermining No No No -Wound/Ulcer Outcome Not Healed Not Healed Not Healed -Ulcer Cleansing Rinsed/ Rinsed/ Rinsed/ Irrigated with Irrigated with Irrigated with Saline Saline Saline -Foul Odor after Cleansing No No No -Bioengineered Tissue No No No -Bleeding Controlled with Pressure Pressure Pressure -Offloading No No No -Treatment Response Procedure Procedure Procedure Tolerated Well Tolerated Well Tolerated Well -Debridement - Subq, 1st 20sq cm Yes No No #3 R posterior LE -Time 11:58 11:54 11:45 -Correct Patient Yes Yes Yes -Correct Side, Site, Position Yes Yes Yes -Correct Procedure Yes Yes Yes -Procedure Performed Yes Yes No -Type of Procedure Debridement Debridement -Clinical Debridement Subcutaneous Subcutaneous -Tissue Removed Subcutaneous Subcutaneous -Post Debridement (cm) - Length 3.1 1.5 -Post Debridement (cm) - Width 1.8 2.0 -Post Debridement (cm) - Depth 0.1 0.1 -Total Square (Post) (cm) 5.58 3.00 -Area of Debridement (cm) - Length 3.1 1.5 -Area of Debridement (cm) - Width 1.8 2.0 -Total Square (Area) (cm) 5.58 3.00 -Tunneling No No -Undermining/Tunneling No No -Circular Undermining No No -Wound/Ulcer Outcome Not Healed Not Healed Converted -Ulcer Cleansing Rinsed/ Rinsed/ Irrigated with Irrigated with Saline Saline -Foul Odor after Cleansing No No -Bioengineered Tissue No No -Bleeding Controlled with Pressure Pressure -Offloading No No -Treatment Response Procedure Procedure Tolerated Well Tolerated Well -Debridement - Subq, 1st 20sq cm No No #2 R medial LE -Time 11:59 11:55 11:46 -Correct Patient Yes Yes Yes -Correct Side, Site, Position Yes Yes Yes -Correct Procedure Yes Yes Yes -Procedure Performed Yes Yes No -Type of Procedure Debridement Debridement -Clinical Debridement Subcutaneous Subcutaneous -Tissue Removed Subcutaneous Subcutaneous -Post Debridement (cm) - Length 1.0 0.5 -Post Debridement (cm) - Width 0.6 0.7 -Post Debridement (cm) - Depth 0.1 0.1 -Total Square (Post) (cm) 0.60 0.35 -Area of Debridement (cm) - Length 1.0 0.5 -Area of Debridement (cm) - Width 0.6 0.7 -Total Square (Area) (cm) 0.60 0.35 -Tunneling No No No -Undermining/Tunneling No No No -Circular Undermining No No -Wound/Ulcer Outcome Not Healed Not Healed Converted -Ulcer Cleansing Rinsed/ Rinsed/ Irrigated with Irrigated with Saline Saline -Foul Odor after Cleansing No No -Bioengineered Tissue No No -Bleeding Controlled with Pressure Pressure -Offloading No No -Treatment Response Procedure Tolerated Well -Debridement - Subq, 1st 20sq cm No No #1 Right medial Ankle -Time 12:22 11:46 -Correct Patient Yes Yes -Correct Side, Site, Position Yes Yes -Correct Procedure Yes Yes -Procedure Performed Yes No -Type of Procedure Debridement -Clinical Debridement Subcutaneous -Tissue Removed Subcutaneous -Post Debridement (cm) - Length 3.2 -Post Debridement (cm) - Width 1.5 -Post Debridement (cm) - Depth 0.1 -Total Square (Post) (cm) 4.80 -Area of Debridement (cm) - Length 3.2 -Area of Debridement (cm) - Width 1.5 -Total Square (Area) (cm) 4.80 -Tunneling No -Undermining/Tunneling No -Circular Undermining No -Wound/Ulcer Outcome Converted Not Healed Converted -Ulcer Cleansing Rinsed/ Irrigated with Saline -Foul Odor after Cleansing No -Bioengineered Tissue No -Bleeding Controlled with Pressure -Offloading No -Treatment Response Procedure Tolerated Well -Debridement - Subq, 1st 20sq cm No Pain Scale: 0-10 Numeric Is Patient Pain Free? Yes WC - Nurse 3 - General Ulcer D/C NN Start: 02/26/21 11:55 Freq: Status: Active Protocol: Activity Type Activity Date Activity User E-Sign Co-Sign Detail Recorded Client Recorded Date Recorded By Document 02/26/21 12:25 DL [id number] 02/26/21 12:28 DL Document 03/05/21 12:11 ML [id number] 03/05/21 12:14 ML Document 03/05/21 12:19 ML [id number] 03/05/21 12:19 ML Document 03/12/21 12:03 DL [id number] 03/12/21 12:16 DL 02/26/21 03/05/21 03/05/21 12:25 12:11 12:19 Wound Care Nurse 3 #6 Right medial/posterior LE cluster -Ulcer Cleansing -Foul Odor after Cleansing -Primary Dressing Applied -Primary Dressing Covered/Secured with -Aquacel Extra #5 left superior ankle -Ulcer Cleansing -Foul Odor after Cleansing -Primary Dressing Applied Aquacel Extra -Other Dressing abd,kerlex, super absorbent -Primary Dressing Covered/Secured with -Aquacel Extra 0 #4 RIGHT LATERAL ANKLE -Ulcer Cleansing Rinsed/ Rinsed/ Irrigated with Irrigated with Saline Saline -Foul Odor after Cleansing No -Primary Dressing Applied Aquacel Extra Aquacel Extra -Other Dressing abd,super absorbent, kerlex -Primary Dressing Covered/Secured with Dry Gauze & Dry Gauze & Roll Gauze, Roll Gauze, Secured with Secured with Tape Tape -Other Covering optilock -Aquacel Extra 1 0 #3 R posterior LE -Ulcer Cleansing Rinsed/ Rinsed/ Irrigated with Irrigated with Saline Saline -Foul Odor after Cleansing No -Primary Dressing Applied Aquacel Extra -Other Dressing aquacel ex abd,kerlex, super absorbent -Primary Dressing Covered/Secured with Dry Gauze & Secured with Roll Gauze, Tape Secured with Tape -Other Covering optilock -Aquacel Extra 0 #2 R medial LE -Ulcer Cleansing Rinsed/ Rinsed/ Irrigated with Irrigated with Saline Saline -Foul Odor after Cleansing No -Primary Dressing Applied Aquacel Extra -Other Dressing aquacel ex abd,kerlex, super absorbent -Primary Dressing Covered/Secured with Dry Gauze & Secured with Roll Gauze, Tape Secured with Tape -Other Covering opilock -Aquacel Extra 0 right leg -Tubular Bandage -Size of Tubigrip Used -Size F ($) 1 Left -Tubular Bandage -Size of Tubigrip Used -Size F ($) -Other tubigrip Treatment Response Procedure Tolerated Well Pain Scale: 0-10 Numeric Is Patient Pain Free? Yes WC - Visit Discharge Discharge Condition Stable Ambulatory Status Ambulatory Transportation Private Auto Accompanied by [facility] Facility Type Telephoned (if yes, spoke with:) 03/12/21 12:03 Wound Care Nurse 3 #6 Right medial/posterior LE cluster -Ulcer Cleansing Rinsed/ Irrigated with Saline -Foul Odor after Cleansing No -Primary Dressing Applied Aquacel Extra -Primary Dressing Covered/Secured with Dry Gauze & Roll Gauze, Secured with Tape -Aquacel Extra 2 #5 left superior ankle -Ulcer Cleansing Rinsed/ Irrigated with Saline -Foul Odor after Cleansing No -Primary Dressing Applied Aquacel Extra -Other Dressing -Primary Dressing Covered/Secured with Dry Gauze & Roll Gauze, Secured with Tape -Aquacel Extra 0 #4 RIGHT LATERAL ANKLE -Ulcer Cleansing Rinsed/ Irrigated with Saline -Foul Odor after Cleansing No -Primary Dressing Applied -Other Dressing aqacel ex -Primary Dressing Covered/Secured with Dry Gauze & Roll Gauze, Secured with Tape -Other Covering -Aquacel Extra 0 #3 R posterior LE -Ulcer Cleansing -Foul Odor after Cleansing -Primary Dressing Applied -Other Dressing -Primary Dressing Covered/Secured with -Other Covering -Aquacel Extra #2 R medial LE -Ulcer Cleansing -Foul Odor after Cleansing -Primary Dressing Applied -Other Dressing -Primary Dressing Covered/Secured with -Other Covering -Aquacel Extra right leg -Tubular Bandage Single Layer -Size of Tubigrip Used Size F -Size F ($) 1 Left -Tubular Bandage Single Layer -Size of Tubigrip Used Size F -Size F ($) 1 -Other Treatment Response Procedure Tolerated Well Pain Scale: 0-10 Numeric Is Patient Pain Free? Yes WC - Visit Discharge Discharge Condition Stable Ambulatory Status Wheelchair Transportation Private Auto Accompanied by Facility Type Home Health Telephoned (if yes, spoke with:) Yes Additional Wound Wound debrided: Right lower extremity medial cluster Type of Debridement: Excisional debridement Anesthesia Used: 4% Lidocaine Solution Depth: Down to and including healthy tissue Percentage of wound debrided: 100 Instrument Used: 5mm curette Tissue Removed: Slough and devitalized tissue Severity: Fat Layer Exposed Amount of bleeding with debridement: Mild Bleeding Controlled with: Pressure Patient tolerated procedure: Patient tolerated procedure well Additional Wound Wound debrided: Right lower extremity lateral Type of Debridement: Excisional debridement Anesthesia Used: 4% Lidocaine Solution Depth: Down to and including healthy tissue and in the subcutaneous layer Percentage of wound debrided: 100 Instrument Used: 5mm curette Tissue Removed: Slough and devitalized tissue Severity: Fat Layer Exposed Amount of bleeding with debridement: Mild Bleeding Controlled with: Pressure Patient tolerated procedure: Patient tolerated procedure well Assessment/Plan Assessment/Plan (1) Ulcer of right lower extremity with fat layer exposed: CODE(S): L97.912 - Non-pressure chronic ulcer of unspecified part of right lower leg with fat layer exposed (2) Ulcer of left lower extremity with fat layer exposed: CODE(S): L97.922 - Non-pressure chronic ulcer of unspecified part of 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 Patient not very tolerant of compression. Yet to start lymphedema pump or CircAid's due to pending approval from phone representative and insurance cost respectively. Debridement done as documented above, procedure was well-tolerated. Continue Aquacel extra with ABD or Keramax care over top. Change daily to twice daily depending on drainage. Has significant drainage from her ulcers. This will impede wound healing. She was advised to get approval from her phone representative as soon as possible so she can commence use of the lymphedema pump. She states that she will. We will attempt to order the CircA[employer]'s again and hopefully get this approved by insurance. Elevate lower extremities when seated and in bed. Exercise as tolerated. Optimal diabetes control again recommended. Increase intake of protein rich foods, vitamin C and zinc. Her questions were answered and she was advised to call with any further questions or concerns. Follow-up in 1 week. This note was generated with [employer] software. It may contain incorrect words, spelling, and punctuation that were not noted in checking the note before signing.
[2021-03-19 11:00] VITALS: BP 142/75; PULSE 105; RESP 24; TEMP 36.4
--- NOTE | 2021-03-19 12:58 | PCM.WC.PN ---
History of Present Illness Date of Service: 03/19/21 Chief Complaint: Right Lower Extremity Ulcers History of Wound: Ms. Kwong is a 80 yo who was referred to the wound center by her microbiology laboratory manager due to nonhealing right lower extremity ulcers. Initially noted in August, denies any known precipitating factor however, has had problematic right lower extremity swelling for months. Was given a prescription for compression stockings however has had difficulty wearing it. She states that she has been applying antibiotic ointment to the ulcers otherwise has left it open to air. History of diabetes mellitus which is said to be well controlled. She feels well otherwise and denies chills, fever, nausea, vomiting or change in bowel habit. Subjective Subjective Still significant bilateral lower extremity swelling. She states that her microbiology laboratory manager did not approve the use of the lymphedema pump. Has also received the CircAid's but did not start to use. Has no compression. Objective Data Objective Data Vital Signs: Vital Signs Temp Pulse Resp BP Pulse Ox 97.6 F L 105 H 24 H 142/75 H 95 03/19/21 11:00 03/19/21 11:00 03/19/21 11:00 03/19/21 11:00 02/25/21 00:39 Charges/Coding Procedures Integumentary [id number]: [id number] Marie subq tissue 20 sq cm/< Add On Codes: [id number] Marie subq tissue add-on (x6. Additional square centimeter debrided, please refer to clinical note.) Physical Exam Const alert, oriented x3 and no apparent distress General Appearance: cooperative and comfortable HEENT normocephalic and head/scalp atraumatic Neck full ROM and supple General: normal visual inspection Resp normal respiratory effort Effort and Inspection: able to speak in complete sentences Skin Wounds: wounds noted Neuro oriented x3 and CN's II-XII intact bilaterally Sensorium / Orientation: awake, alert and oriented to person Psych mental status grossly normal Appearance: grossly normal Attitude: calm Activity / Motor Behavior: appropriate eye contact Debridement Note Debridement Note Wound debrided: Right medial cluster Type of Debridement: Excisional debridement Anesthesia Used: 4% Lidocaine Solution Depth: Down to and including healthy tissue and in the subcutaneous layer Percentage of wound debrided: 100 Instrument Used: 5mm curette Tissue Removed: Slough and devitalized tissue Severity: Fat Layer Exposed Amount of bleeding with debridement: Mild Bleeding Controlled with: Pressure Patient tolerated procedure: Patient tolerated procedure well Post-Debridement Measurements and Additional Note: Post-Debridement Measurements/Treatment WC - Nurse 1 - General Ulcer Assessment Start: 02/26/21 11:55 Freq: Status: Active Protocol: ROSE Activity Type Activity Date Activity User E-Sign Co-Sign Detail Recorded Client Recorded Date Recorded By Document 02/26/21 11:55 AK [id number] 02/26/21 12:04 AK Document 03/05/21 11:34 AK [id number] 03/05/21 11:45 AK Document 03/12/21 11:13 DL [id number] 03/12/21 11:31 DL Document 03/19/21 11:00 DL [id number] 03/19/21 11:16 DL 02/26/21 03/05/21 03/12/21 11:55 11:34 11:13 WC - Today's Visit Information Type of service Follow-up Visit Follow-up Visit Follow-up Visit (Physician/ONCOLOGY PHARMACIST (Physician/ONCOLOGY PHARMACIST (Physician/ONCOLOGY PHARMACIST ) ) ) Arrival Mode Wheelchair Wheelchair Wheelchair Transfer Assistance None Manual Transfer Assist (Other) x2 Patient Identification Verified (Name & Yes Yes Yes ) Patient Requires Transmission-Based No No No Precautions Safety Precautions NA Finger Stick Blood Sugar(mg/dl) (if 108 114 indicated): Blood Sugar Stated by Stated by Patient Patient Vital Signs Temperature (97.8 F-99.1 F) 97.5 F L 97.7 F L 97.5 F L Temperature Source Temporal Temporal Temporal Pulse Rate (60-100) 75 86 65 Pulse Location Monitor Monitor Monitor Respiratory Rate (12-18) 19 H 24 H Respiratory rate source Observation Observation Blood Pressure (90/60-120/80) 124/54 H 146/74 H 132/50 H Blood Pressure Mean (mm Hg) 77 98 77 Source Monitor Monitor Monitor Position Sitting Blood Pressure Location Right Arm History Since Last Visit- (Skip if this is Patient's initial visit) Have you changed medications since your No Yes No last visit? Any new allergies or adverse reactions No No No Had a fall/change in ADL's that may No No No increase risk of falls Signs or symptoms of abuse and/or No No No neglect since last visit Have you been in the hospital since your No No No last visit? Has dressing in place as prescribed Yes Yes Yes Has compression in place as prescribed N/A Yes Yes Has offloadiing in place as prescribed N/A N/A Yes Experienced any changes in pain level or No No No management Left Footwear Slipper Regular Shoe Slipper Right Footwear Slipper Regular Shoe Slipper Pain Scale: 0-10 Numeric Is Patient Pain Free? Yes Yes 03/19/21 11:00 WC - Today's Visit Information Type of service Follow-up Visit (Physician/ONCOLOGY PHARMACIST ) Arrival Mode Wheelchair Transfer Assistance Manual Transfer Assist (Other) x1 Patient Identification Verified (Name & Yes ) Patient Requires Transmission-Based No Precautions Safety Precautions Finger Stick Blood Sugar(mg/dl) (if 117 indicated): Blood Sugar Stated by Patient Vital Signs Temperature (97.8 F-99.1 F) 97.6 F L Temperature Source Temporal Pulse Rate (60-100) 105 H Pulse Location Monitor Respiratory Rate (12-18) 24 H Respiratory rate source Observation Blood Pressure (90/60-120/80) 142/75 H Blood Pressure Mean (mm Hg) 97 Source Monitor Position Blood Pressure Location History Since Last Visit- (Skip if this is Patient's initial visit) Have you changed medications since your No last visit? Any new allergies or adverse reactions No Had a fall/change in ADL's that may No increase risk of falls Signs or symptoms of abuse and/or No neglect since last visit Have you been in the hospital since your No last visit? Has dressing in place as prescribed Yes Has compression in place as prescribed No Has offloadiing in place as prescribed N/A Experienced any changes in pain level or No management Left Footwear Right Footwear Pain Scale: 0-10 Numeric Is Patient Pain Free? Yes - Nurse 1 - General Ulcer Measurement Start: 02/26/21 11:55 Freq: Status: Active Protocol: Activity Type Activity Date Activity User E-Sign Co-Sign Detail Recorded Client Recorded Date Recorded By Document 02/26/21 11:55 AK [id number] 02/26/21 12:04 AK Document 03/05/21 11:34 AK [id number] 03/05/21 11:45 AK Document 03/12/21 11:13 DL [id number] 03/12/21 11:31 DL Document 03/19/21 11:00 DL [id number] 03/19/21 11:16 DL 02/26/21 03/05/21 03/12/21 11:55 11:34 11:13 Wound Center Nurse 1 #6 Right medial/posterior LE cluster -Current Size (cm) - Length -Current Size (cm) - Width -Current Size (cm) - Depth -Total Square Cm -Photo Taken -Exudate Amt -Exudate Type -Wound Margin -Granulation Amt -Granulation Quality -Necrosis Amt -Necrotic Tissue Type -Structure Exposed -Texture (Richelle-wound Skin Appearance) -Moisture (Richelle-wound Skin Appearance) -Color (Richelle-wound Skin Appearance) -Temperature (Richelle-wound Skin Appearance) -Tenderness on Palpation (Richelle-wound Skin Appearance) -Ulcer Cleansing -Foul Odor after Cleansing -Anesthetic Used #5 left superior ankle -Combined with other wound No -Current Size (cm) - Length 1 2 -Current Size (cm) - Width 1 0.4 -Current Size (cm) - Depth 0.1 0.1 -Total Square Cm 1 0.8 -Photo Taken No -Epithelialization None Present -Tunneling No -Undermining/Tunneling No -Circular Undermining No -Exudate Amt Large Medium -Exudate Type Serosanguineous Serosanguineous -Wound Margin Distinct, Distinct, Outline Outline Attached Attached -Granulation Amt Medium (34-66%) Medium (34-66%) -Granulation Quality [place] -Slough/Fibrin Yes Yes -Necrosis Amt Medium (34-66%) Medium (34-66%) -Necrotic Tissue Type Adherent Slough Adherent Slough -Structure Exposed -Texture (Richelle-wound Skin Appearance) Assessed, Scarring -Moisture (Richelle-wound Skin Appearance) Weeping Assessed, Maceration -Color (Richelle-wound Skin Appearance) Erythema Assessed, Erythema,Palor -Temperature (Richelle-wound Skin No Abnormality No Abnormality Appearance) (Pt Warm) (Pt Warm) -Tenderness on Palpation (Richelle-wound Yes Yes Skin Appearance) -Ulcer Cleansing Rinsed/ Rinsed/ Irrigated with Irrigated with Saline Saline -Foul Odor after Cleansing No No -Anesthetic Used 5% Lidocaine 4% Lidocaine Gel Solution #4 RIGHT LATERAL ANKLE -Combined with other wound No No -Current Size (cm) - Length 2.5 1.7 1.5 -Current Size (cm) - Width 1.8 1 1 -Current Size (cm) - Depth 0.1 0.1 0.1 -Total Square Cm 4.50 1.7 1.5 -Photo Taken No No -Epithelialization None Present -Tunneling No No -Undermining/Tunneling No No -Circular Undermining No No -Exudate Amt Large Medium Medium -Exudate Type Serosanguineous Serosanguineous Serosanguineous -Wound Margin Distinct, Distinct, Distinct, Outline Outline Outline Attached Attached Attached -Granulation Amt None Present (0 Medium (34-66%) Medium (34-66%) %) -Granulation Quality [place] -Slough/Fibrin Yes Yes Yes -Necrosis Amt Large (67-100%) Large (67-100%) Medium (34-66%) -Necrotic Tissue Type Adherent Slough Adherent Slough Adherent Slough -Structure Exposed N/A -Texture (Richelle-wound Skin Appearance) No Abnormality, Assessed, Assessed Scarring -Moisture (Richelle-wound Skin Appearance) Assessed, Weeping Assessed, Weeping Maceration -Color (Richelle-wound Skin Appearance) No Abnormality, Erythema Assessed, Assessed Erythema,Palor -Temperature (Richelle-wound Skin No Abnormality No Abnormality No Abnormality Appearance) (Pt Warm) (Pt Warm) (Pt Warm) -Tenderness on Palpation (Richelle-wound No Yes Yes Skin Appearance) -Ulcer Cleansing Rinsed/ Rinsed/ Rinsed/ Irrigated with Irrigated with Irrigated with Saline Saline Saline -Foul Odor after Cleansing No -Anesthetic Used 4% Lidocaine 5% Lidocaine 4% Lidocaine Solution,5% Gel Solution Lidocaine Gel #3 R posterior LE -Combined with other wound No No -Current Size (cm) - Length 0.1 0.1 2 -Current Size (cm) - Width 0.1 0.1 2 -Current Size (cm) - Depth 0.1 0.1 0.1 -Total Square Cm 0.01 0.01 4 -Photo Taken No No -Epithelialization None Present -Tunneling No No -Undermining/Tunneling No No -Circular Undermining No No -Change in Wound Grade/Stage No -Exudate Amt None Present Medium Medium -Exudate Type Serosanguineous Serosanguineous -Wound Margin Distinct, Distinct, Outline Outline Attached Attached -Granulation Amt None Present (0 Medium (34-66%) Medium (34-66%) %) -Granulation Quality [place] -Slough/Fibrin No Yes Yes -Necrosis Amt None Present (0 Large (67-100%) Medium (34-66%) %) -Necrotic Tissue Type Adherent Slough Adherent Slough -Texture (Richelle-wound Skin Appearance) Assessed Assessed, Excoriation -Moisture (Richelle-wound Skin Appearance) Weeping Assessed, Maceration -Color (Richelle-wound Skin Appearance) Erythema Assessed, Erythema,Palor -Temperature (Richelle-wound Skin No Abnormality No Abnormality Appearance) (Pt Warm) (Pt Warm) -Tenderness on Palpation (Richelle-wound Yes Yes Skin Appearance) -Ulcer Cleansing Rinsed/ Rinsed/ Irrigated with Irrigated with Saline Saline -Foul Odor after Cleansing No -Anesthetic Used 5% Lidocaine 4% Lidocaine Gel Solution #2 R medial LE -Combined with other wound No -Current Size (cm) - Length 0.5 6 -Current Size (cm) - Width 0.5 5 -Current Size (cm) - Depth 0.1 0.1 -Total Square Cm 0.25 30 -Photo Taken No -Epithelialization None Present -Tunneling No -Undermining/Tunneling No -Circular Undermining No -Exudate Amt Large Medium -Exudate Type Serosanguineous Serosanguineous -Wound Margin Distinct, Distinct, Outline Outline Attached Attached -Granulation Amt Large (67-100%) Medium (34-66%) -Granulation Quality [place] -Slough/Fibrin Yes Yes -Necrosis Amt Large (67-100%) Medium (34-66%) -Necrotic Tissue Type Adherent Slough Adherent Slough -Texture (Richelle-wound Skin Appearance) Assessed, Scarring -Moisture (Richelle-wound Skin Appearance) Weeping Assessed, Maceration -Color (Richelle-wound Skin Appearance) Erythema Assessed, Erythema,Palor -Temperature (Richelle-wound Skin No Abnormality No Abnormality Appearance) (Pt Warm) (Pt Warm) -Tenderness on Palpation (Richelle-wound Yes No Skin Appearance) -Ulcer Cleansing Rinsed/ Rinsed/ Irrigated with Irrigated with Saline Saline -Foul Odor after Cleansing No -Anesthetic Used 5% Lidocaine 4% Lidocaine Gel Solution #1 Right medial Ankle -Combined with other wound No No -Current Size (cm) - Length 1.5 0.6 -Current Size (cm) - Width 0.5 0.5 -Current Size (cm) - Depth 0.1 0.1 -Total Square Cm 0.75 0.30 -Photo Taken No No -Epithelialization None Present None Present -Tunneling No No -Undermining/Tunneling No No -Circular Undermining No No -Change in Wound Grade/Stage No -Exudate Amt Large Medium -Exudate Type Serosanguineous Serosanguineous -Wound Margin Distinct, Distinct, Outline Outline Attached Attached -Granulation Amt None Present (0 Medium (34-66%) %) -Granulation Quality [place] -Slough/Fibrin Yes Yes -Necrosis Amt Large (67-100%) Medium (34-66%) -Necrotic Tissue Type Adherent Slough Adherent Slough -Structure Exposed N/A -Texture (Richelle-wound Skin Appearance) Assessed Assessed, Scarring -Moisture (Richelle-wound Skin Appearance) Assessed, Assessed, Weeping Maceration -Color (Richelle-wound Skin Appearance) Assessed, Assessed, Hemosiderin Erythema,Palor Staining -Temperature (Richelle-wound Skin No Abnormality No Abnormality Appearance) (Pt Warm) (Pt Warm) -Tenderness on Palpation (Richelle-wound No Yes Skin Appearance) -Ulcer Cleansing Rinsed/ Rinsed/ Irrigated with Irrigated with Saline Saline -Foul Odor after Cleansing No -Anesthetic Used 4% Lidocaine 4% Lidocaine Solution,5% Solution Lidocaine Gel Lower Limb Edema Present No Yes Right Calf (cm) 56 56 Right Ankle (cm) 39 29.3 Left Calf (cm) 49.5 47 Left Ankle (cm) 32 6.2 03/19/21 11:00 Wound Center Nurse 1 #6 Right medial/posterior LE cluster -Current Size (cm) - Length 9 -Current Size (cm) - Width 9 -Current Size (cm) - Depth 0.1 -Total Square Cm 81 -Photo Taken No -Exudate Amt Medium -Exudate Type Yellow/Green -Wound Margin Indistinct, Non -Visible -Granulation Amt Medium (34-66%) -Granulation Quality [place] -Necrosis Amt Medium (34-66%) -Necrotic Tissue Type Eschar -Structure Exposed N/A -Texture (Richelle-wound Skin Appearance) Localized Edema ,Scarring -Moisture (Richelle-wound Skin Appearance) No Abnormality -Color (Richelle-wound Skin Appearance) Erythema -Temperature (Richelle-wound Skin No Abnormality Appearance) (Pt Warm) -Tenderness on Palpation (Richelle-wound Yes Skin Appearance) -Ulcer Cleansing Wound Cleanser -Foul Odor after Cleansing Yes, Due to Product Use -Anesthetic Used 4% Lidocaine Solution #5 left superior ankle -Combined with other wound -Current Size (cm) - Length 3.3 -Current Size (cm) - Width 2.7 -Current Size (cm) - Depth 0.2 -Total Square Cm 8.91 -Photo Taken No -Epithelialization -Tunneling -Undermining/Tunneling -Circular Undermining -Exudate Amt Medium -Exudate Type Serosanguineous -Wound Margin Distinct, Outline Attached -Granulation Amt None Present (0 %) -Granulation Quality -Slough/Fibrin -Necrosis Amt Large (67-100%) -Necrotic Tissue Type Adherent Slough -Structure Exposed N/A -Texture (Richelle-wound Skin Appearance) Localized Edema ,Scarring -Moisture (Richelle-wound Skin Appearance) No Abnormality -Color (Richelle-wound Skin Appearance) Erythema -Temperature (Richelle-wound Skin No Abnormality Appearance) (Pt Warm) -Tenderness on Palpation (Richelle-wound Yes Skin Appearance) -Ulcer Cleansing Wound Cleanser -Foul Odor after Cleansing No -Anesthetic Used 4% Lidocaine Solution #4 RIGHT LATERAL ANKLE -Combined with other wound -Current Size (cm) - Length 1.4 -Current Size (cm) - Width 0.7 -Current Size (cm) - Depth 0.1 -Total Square Cm 0.98 -Photo Taken No -Epithelialization -Tunneling -Undermining/Tunneling -Circular Undermining -Exudate Amt Medium -Exudate Type Serosanguineous -Wound Margin Distinct, Outline Attached -Granulation Amt Medium (34-66%) -Granulation Quality [place] -Slough/Fibrin -Necrosis Amt Medium (34-66%) -Necrotic Tissue Type Adherent Slough -Structure Exposed N/A -Texture (Richelle-wound Skin Appearance) Scarring -Moisture (Richelle-wound Skin Appearance) No Abnormality -Color (Richelle-wound Skin Appearance) Erythema, Hemosiderin Staining -Temperature (Richelle-wound Skin No Abnormality Appearance) (Pt Warm) -Tenderness on Palpation (Richelle-wound No Skin Appearance) -Ulcer Cleansing Wound Cleanser -Foul Odor after Cleansing No -Anesthetic Used 4% Lidocaine Solution #3 R posterior LE -Combined with other wound -Current Size (cm) - Length -Current Size (cm) - Width -Current Size (cm) - Depth -Total Square Cm -Photo Taken -Epithelialization -Tunneling -Undermining/Tunneling -Circular Undermining -Change in Wound Grade/Stage -Exudate Amt -Exudate Type -Wound Margin -Granulation Amt -Granulation Quality -Slough/Fibrin -Necrosis Amt -Necrotic Tissue Type -Texture (Richelle-wound Skin Appearance) -Moisture (Richelle-wound Skin Appearance) -Color (Richelle-wound Skin Appearance) -Temperature (Richelle-wound Skin Appearance) -Tenderness on Palpation (Richelle-wound Skin Appearance) -Ulcer Cleansing -Foul Odor after Cleansing -Anesthetic Used #2 R medial LE -Combined with other wound -Current Size (cm) - Length -Current Size (cm) - Width -Current Size (cm) - Depth -Total Square Cm -Photo Taken -Epithelialization -Tunneling -Undermining/Tunneling -Circular Undermining -Exudate Amt -Exudate Type -Wound Margin -Granulation Amt -Granulation Quality -Slough/Fibrin -Necrosis Amt -Necrotic Tissue Type -Texture (Richelle-wound Skin Appearance) -Moisture (Richelle-wound Skin Appearance) -Color (Richelle-wound Skin Appearance) -Temperature (Richelle-wound Skin Appearance) -Tenderness on Palpation (Richelle-wound Skin Appearance) -Ulcer Cleansing -Foul Odor after Cleansing -Anesthetic Used #1 Right medial Ankle -Combined with other wound -Current Size (cm) - Length -Current Size (cm) - Width -Current Size (cm) - Depth -Total Square Cm -Photo Taken -Epithelialization -Tunneling -Undermining/Tunneling -Circular Undermining -Change in Wound Grade/Stage -Exudate Amt -Exudate Type -Wound Margin -Granulation Amt -Granulation Quality -Slough/Fibrin -Necrosis Amt -Necrotic Tissue Type -Structure Exposed -Texture (Richelle-wound Skin Appearance) -Moisture (Richelle-wound Skin Appearance) -Color (Richelle-wound Skin Appearance) -Temperature (Richelle-wound Skin Appearance) -Tenderness on Palpation (Richelle-wound Skin Appearance) -Ulcer Cleansing -Foul Odor after Cleansing -Anesthetic Used Lower Limb Edema Present Right Calf (cm) 57.7 Right Ankle (cm) 29.8 Left Calf (cm) 48 Left Ankle (cm) 29 WC - Nurse 2 - General Ulcer CM Notes Start: 02/26/21 11:55 Freq: Status: Active Protocol: Activity Type Activity Date Activity User E-Sign Co-Sign Detail Recorded Client Recorded Date Recorded By Document 02/26/21 11:58 MT [id number] 02/26/21 12:06 MT Document 03/05/21 11:53 MT [id number] 03/05/21 12:24 MT Document 03/12/21 11:44 MW [id number] 03/12/21 11:57 MW Document 03/19/21 11:24 MW [id number] 03/19/21 11:32 MW 02/26/21 03/05/21 03/12/21 11:58 11:53 11:44 Wound Center Nurse 2 #6 Right medial/posterior LE cluster -Time 11:55 -Correct Patient Yes -Correct Side, Site, Position Yes -Correct Procedure Yes -Procedure Performed Yes -Type of Procedure Debridement -Clinical Debridement Subcutaneous -Tissue Removed Subcutaneous -Post Debridement (cm) - Length 8.5 -Post Debridement (cm) - Width 9.0 -Post Debridement (cm) - Depth 0.1 -Total Square (Post) (cm) 76.50 -Area of Debridement (cm) - Length 8.5 -Area of Debridement (cm) - Width 9.0 -Total Square (Area) (cm) 76.50 -Tunneling No -Undermining/Tunneling No -Circular Undermining No -Wound/Ulcer Outcome Not Healed -Ulcer Cleansing Rinsed/ Irrigated with Saline -Foul Odor after Cleansing No -Bioengineered Tissue No -Bleeding Controlled with Pressure -Offloading No -Treatment Response Procedure Tolerated Well -Debridement - Subq, 1st 20sq cm Yes -Debridement, SubQ, ea addt'l 20sq cm 4 or part thereof #5 left superior ankle -Time 11:53 11:45 -Correct Patient Yes Yes -Correct Side, Site, Position Yes Yes -Correct Procedure Yes Yes -Procedure Performed Yes Yes -Type of Procedure Debridement Debridement -Clinical Debridement Subcutaneous Subcutaneous -Tissue Removed Subcutaneous Subcutaneous -Post Debridement (cm) - Length 2.5 2.5 -Post Debridement (cm) - Width 1.5 1.5 -Post Debridement (cm) - Depth 0.1 0.1 -Total Square (Post) (cm) 3.75 3.75 -Area of Debridement (cm) - Length 2.5 2.5 -Area of Debridement (cm) - Width 1.5 1.5 -Total Square (Area) (cm) 3.75 3.75 -Tunneling No No -Undermining/Tunneling No No -Circular Undermining No No -Wound/Ulcer Outcome Not Healed Not Healed -Ulcer Cleansing Rinsed/ Rinsed/ Irrigated with Irrigated with Saline Saline -Foul Odor after Cleansing No No -Bioengineered Tissue No No -Bleeding Controlled with Pressure Pressure -Offloading No -Treatment Response Procedure Procedure Tolerated Well Tolerated Well -Debridement - Subq, 1st 20sq cm Yes No #4 RIGHT LATERAL ANKLE -Time 11:58 11:53 11:45 -Correct Patient Yes Yes Yes -Correct Side, Site, Position Yes Yes Yes -Correct Procedure Yes Yes Yes -Procedure Performed Yes Yes Yes -Type of Procedure Debridement Debridement Debridement -Clinical Debridement Subcutaneous Subcutaneous Subcutaneous -Tissue Removed Subcutaneous Subcutaneous Subcutaneous -Post Debridement (cm) - Length 1.9 2.0 1.5 -Post Debridement (cm) - Width 0.9 1.0 1.0 -Post Debridement (cm) - Depth 0.1 0.1 0.1 -Total Square (Post) (cm) 1.71 2.00 1.50 -Area of Debridement (cm) - Length 1.9 2.0 1.5 -Area of Debridement (cm) - Width 0.9 1.0 1.0 -Total Square (Area) (cm) 1.71 2.00 1.50 -Tunneling No No No -Undermining/Tunneling No No No -Circular Undermining No No No -Wound/Ulcer Outcome Not Healed Not Healed Not Healed -Ulcer Cleansing Rinsed/ Rinsed/ Rinsed/ Irrigated with Irrigated with Irrigated with Saline Saline Saline -Foul Odor after Cleansing No No No -Bioengineered Tissue No No No -Bleeding Controlled with Pressure Pressure Pressure -Offloading No No No -Treatment Response Procedure Procedure Procedure Tolerated Well Tolerated Well Tolerated Well -Debridement - Subq, 1st 20sq cm Yes No No #3 R posterior LE -Time 11:58 11:54 11:45 -Correct Patient Yes Yes Yes -Correct Side, Site, Position Yes Yes Yes -Correct Procedure Yes Yes Yes -Procedure Performed Yes Yes No -Type of Procedure Debridement Debridement -Clinical Debridement Subcutaneous Subcutaneous -Tissue Removed Subcutaneous Subcutaneous -Post Debridement (cm) - Length 3.1 1.5 -Post Debridement (cm) - Width 1.8 2.0 -Post Debridement (cm) - Depth 0.1 0.1 -Total Square (Post) (cm) 5.58 3.00 -Area of Debridement (cm) - Length 3.1 1.5 -Area of Debridement (cm) - Width 1.8 2.0 -Total Square (Area) (cm) 5.58 3.00 -Tunneling No No -Undermining/Tunneling No No -Circular Undermining No No -Wound/Ulcer Outcome Not Healed Not Healed Converted -Ulcer Cleansing Rinsed/ Rinsed/ Irrigated with Irrigated with Saline Saline -Foul Odor after Cleansing No No -Bioengineered Tissue No No -Bleeding Controlled with Pressure Pressure -Offloading No No -Treatment Response Procedure Procedure Tolerated Well Tolerated Well -Debridement - Subq, 1st 20sq cm No No #2 R medial LE -Time 11:59 11:55 11:46 -Correct Patient Yes Yes Yes -Correct Side, Site, Position Yes Yes Yes -Correct Procedure Yes Yes Yes -Procedure Performed Yes Yes No -Type of Procedure Debridement Debridement -Clinical Debridement Subcutaneous Subcutaneous -Tissue Removed Subcutaneous Subcutaneous -Post Debridement (cm) - Length 1.0 0.5 -Post Debridement (cm) - Width 0.6 0.7 -Post Debridement (cm) - Depth 0.1 0.1 -Total Square (Post) (cm) 0.60 0.35 -Area of Debridement (cm) - Length 1.0 0.5 -Area of Debridement (cm) - Width 0.6 0.7 -Total Square (Area) (cm) 0.60 0.35 -Tunneling No No No -Undermining/Tunneling No No No -Circular Undermining No No -Wound/Ulcer Outcome Not Healed Not Healed Converted -Ulcer Cleansing Rinsed/ Rinsed/ Irrigated with Irrigated with Saline Saline -Foul Odor after Cleansing No No -Bioengineered Tissue No No -Bleeding Controlled with Pressure Pressure -Offloading No No -Treatment Response Procedure Tolerated Well -Debridement - Subq, 1st 20sq cm No No #1 Right medial Ankle -Time 12:22 11:46 -Correct Patient Yes Yes -Correct Side, Site, Position Yes Yes -Correct Procedure Yes Yes -Procedure Performed Yes No -Type of Procedure Debridement -Clinical Debridement Subcutaneous -Tissue Removed Subcutaneous -Post Debridement (cm) - Length 3.2 -Post Debridement (cm) - Width 1.5 -Post Debridement (cm) - Depth 0.1 -Total Square (Post) (cm) 4.80 -Area of Debridement (cm) - Length 3.2 -Area of Debridement (cm) - Width 1.5 -Total Square (Area) (cm) 4.80 -Tunneling No -Undermining/Tunneling No -Circular Undermining No -Wound/Ulcer Outcome Converted Not Healed Converted -Ulcer Cleansing Rinsed/ Irrigated with Saline -Foul Odor after Cleansing No -Bioengineered Tissue No -Bleeding Controlled with Pressure -Offloading No -Treatment Response Procedure Tolerated Well -Debridement - Subq, 1st 20sq cm No Pain Scale: 0-10 Numeric Is Patient Pain Free? Yes 03/19/21 11:24 Wound Center Nurse 2 #6 Right medial/posterior LE cluster -Time 11:25 -Correct Patient Yes -Correct Side, Site, Position Yes -Correct Procedure Yes -Procedure Performed Yes -Type of Procedure Debridement -Clinical Debridement Subcutaneous -Tissue Removed Subcutaneous -Post Debridement (cm) - Length 10.0 -Post Debridement (cm) - Width 12.0 -Post Debridement (cm) - Depth 0.1 -Total Square (Post) (cm) 120.00 -Area of Debridement (cm) - Length 10.0 -Area of Debridement (cm) - Width 12.0 -Total Square (Area) (cm) 120.00 -Tunneling No -Undermining/Tunneling No -Circular Undermining No -Wound/Ulcer Outcome Not Healed -Ulcer Cleansing Rinsed/ Irrigated with Saline -Foul Odor after Cleansing No -Bioengineered Tissue No -Bleeding Controlled with Pressure -Offloading No -Treatment Response Procedure Tolerated Well -Debridement - Subq, 1st 20sq cm Yes -Debridement, SubQ, ea addt'l 20sq cm 6 or part thereof #5 left superior ankle -Time 11:25 -Correct Patient Yes -Correct Side, Site, Position Yes -Correct Procedure Yes -Procedure Performed Yes -Type of Procedure Debridement -Clinical Debridement Subcutaneous -Tissue Removed Subcutaneous -Post Debridement (cm) - Length 2.9 -Post Debridement (cm) - Width 1.4 -Post Debridement (cm) - Depth 0.1 -Total Square (Post) (cm) 4.06 -Area of Debridement (cm) - Length 2.9 -Area of Debridement (cm) - Width 1.4 -Total Square (Area) (cm) 4.06 -Tunneling No -Undermining/Tunneling No -Circular Undermining No -Wound/Ulcer Outcome Not Healed -Ulcer Cleansing Rinsed/ Irrigated with Saline -Foul Odor after Cleansing No -Bioengineered Tissue No -Bleeding Controlled with Pressure -Offloading No -Treatment Response Procedure Tolerated Well -Debridement - Subq, 1st 20sq cm No #4 RIGHT LATERAL ANKLE -Time 11:25 -Correct Patient Yes -Correct Side, Site, Position Yes -Correct Procedure Yes -Procedure Performed Yes -Type of Procedure Debridement -Clinical Debridement Subcutaneous -Tissue Removed Subcutaneous -Post Debridement (cm) - Length 1.5 -Post Debridement (cm) - Width 1.0 -Post Debridement (cm) - Depth 0.1 -Total Square (Post) (cm) 1.50 -Area of Debridement (cm) - Length 1.5 -Area of Debridement (cm) - Width 1.0 -Total Square (Area) (cm) 1.50 -Tunneling No -Undermining/Tunneling No -Circular Undermining No -Wound/Ulcer Outcome Healed- Surgical Closure -Ulcer Cleansing -Foul Odor after Cleansing No -Bioengineered Tissue No -Bleeding Controlled with Pressure -Offloading No -Treatment Response Procedure Tolerated Well -Debridement - Subq, 1st 20sq cm No #3 R posterior LE -Time -Correct Patient -Correct Side, Site, Position -Correct Procedure -Procedure Performed -Type of Procedure -Clinical Debridement -Tissue Removed -Post Debridement (cm) - Length -Post Debridement (cm) - Width -Post Debridement (cm) - Depth -Total Square (Post) (cm) -Area of Debridement (cm) - Length -Area of Debridement (cm) - Width -Total Square (Area) (cm) -Tunneling -Undermining/Tunneling -Circular Undermining -Wound/Ulcer Outcome -Ulcer Cleansing -Foul Odor after Cleansing -Bioengineered Tissue -Bleeding Controlled with -Offloading -Treatment Response -Debridement - Subq, 1st 20sq cm #2 R medial LE -Time -Correct Patient -Correct Side, Site, Position -Correct Procedure -Procedure Performed -Type of Procedure -Clinical Debridement -Tissue Removed -Post Debridement (cm) - Length -Post Debridement (cm) - Width -Post Debridement (cm) - Depth -Total Square (Post) (cm) -Area of Debridement (cm) - Length -Area of Debridement (cm) - Width -Total Square (Area) (cm) -Tunneling -Undermining/Tunneling -Circular Undermining -Wound/Ulcer Outcome -Ulcer Cleansing -Foul Odor after Cleansing -Bioengineered Tissue -Bleeding Controlled with -Offloading -Treatment Response -Debridement - Subq, 1st 20sq cm #1 Right medial Ankle -Time -Correct Patient -Correct Side, Site, Position -Correct Procedure -Procedure Performed -Type of Procedure -Clinical Debridement -Tissue Removed -Post Debridement (cm) - Length -Post Debridement (cm) - Width -Post Debridement (cm) - Depth -Total Square (Post) (cm) -Area of Debridement (cm) - Length -Area of Debridement (cm) - Width -Total Square (Area) (cm) -Tunneling -Undermining/Tunneling -Circular Undermining -Wound/Ulcer Outcome -Ulcer Cleansing -Foul Odor after Cleansing -Bioengineered Tissue -Bleeding Controlled with -Offloading -Treatment Response -Debridement - Subq, 1st 20sq cm Pain Scale: 0-10 Numeric Is Patient Pain Free? Yes WC - Nurse 3 - General Ulcer D/C NN Start: 02/26/21 11:55 Freq: Status: Active Protocol: Activity Type Activity Date Activity User E-Sign Co-Sign Detail Recorded Client Recorded Date Recorded By Document 02/26/21 12:25 DL [id number] 02/26/21 12:28 DL Document 03/05/21 12:11 ML [id number] 03/05/21 12:14 ML Document 03/05/21 12:19 ML [id number] 03/05/21 12:19 ML Document 03/12/21 12:03 DL [id number] 03/12/21 12:16 DL Document 03/19/21 11:42 KR [id number] 03/19/21 11:43 KR 02/26/21 03/05/21 03/05/21 12:25 12:11 12:19 Wound Care Nurse 3 #6 Right medial/posterior LE cluster -Ulcer Cleansing -Foul Odor after Cleansing -Primary Dressing Applied -Other Dressing -Primary Dressing Covered/Secured with -Aquacel Extra #5 left superior ankle -Ulcer Cleansing -Foul Odor after Cleansing -Primary Dressing Applied Aquacel Extra -Other Dressing abd,kerlex, super absorbent -Primary Dressing Covered/Secured with -Aquacel Extra 0 #4 RIGHT LATERAL ANKLE -Ulcer Cleansing Rinsed/ Rinsed/ Irrigated with Irrigated with Saline Saline -Foul Odor after Cleansing No -Primary Dressing Applied Aquacel Extra Aquacel Extra -Other Dressing abd,super absorbent, kerlex -Primary Dressing Covered/Secured with Dry Gauze & Dry Gauze & Roll Gauze, Roll Gauze, Secured with Secured with Tape Tape -Other Covering optilock -Aquacel Extra 1 0 #3 R posterior LE -Ulcer Cleansing Rinsed/ Rinsed/ Irrigated with Irrigated with Saline Saline -Foul Odor after Cleansing No -Primary Dressing Applied Aquacel Extra -Other Dressing aquacel ex abd,kerlex, super absorbent -Primary Dressing Covered/Secured with Dry Gauze & Secured with Roll Gauze, Tape Secured with Tape -Other Covering optilock -Aquacel Extra 0 #2 R medial LE -Ulcer Cleansing Rinsed/ Rinsed/ Irrigated with Irrigated with Saline Saline -Foul Odor after Cleansing No -Primary Dressing Applied Aquacel Extra -Other Dressing aquacel ex abd,kerlex, super absorbent -Primary Dressing Covered/Secured with Dry Gauze & Secured with Roll Gauze, Tape Secured with Tape -Other Covering opilock -Aquacel Extra 0 right leg -Tubular Bandage -Size of Tubigrip Used -Size F ($) 1 Left -Tubular Bandage -Size of Tubigrip Used -Size F ($) -Other tubigrip Treatment Response Procedure Tolerated Well Pain Scale: 0-10 Numeric Is Patient Pain Free? Yes WC - Visit Discharge Discharge Condition Stable Ambulatory Status Ambulatory Transportation Private Auto [facility]ompanied by [facility] Facility Type Telephoned (if yes, spoke with:) 03/12/21 03/19/21 12:03 11:42 Wound Care Nurse 3 #6 Right medial/posterior LE cluster -Ulcer Cleansing Rinsed/ Irrigated with Saline -Foul Odor after Cleansing No -Primary Dressing Applied Aquacel Extra Aquacel Extra, Other -Other Dressing abd -Primary Dressing Covered/Secured with Dry Gauze & Secured with Roll Gauze, Tape Secured with Tape -Aquacel Extra 2 1 #5 left superior ankle -Ulcer Cleansing Rinsed/ Irrigated with Saline -Foul Odor after Cleansing No -Primary Dressing Applied Aquacel Extra Other -Other Dressing abd -Primary Dressing Covered/Secured with Dry Gauze & Roll Gauze, Secured with Tape -Aquacel Extra 0 #4 RIGHT LATERAL ANKLE -Ulcer Cleansing Rinsed/ Irrigated with Saline -Foul Odor after Cleansing No -Primary Dressing Applied Other -Other Dressing aqacel ex abd -Primary Dressing Covered/Secured with Dry Gauze & Roll Gauze, Secured with Tape -Other Covering -Aquacel Extra 0 #3 R posterior LE -Ulcer Cleansing -Foul Odor after Cleansing -Primary Dressing Applied -Other Dressing -Primary Dressing Covered/Secured with -Other Covering -Aquacel Extra #2 R medial LE -Ulcer Cleansing -Foul Odor after Cleansing -Primary Dressing Applied -Other Dressing -Primary Dressing Covered/Secured with -Other Covering -Aquacel Extra right leg -Tubular Bandage Single Layer -Size of Tubigrip Used Size F -Size F ($) 1 Left -Tubular Bandage Single Layer -Size of Tubigrip Used Size F -Size F ($) 1 -Other Treatment Response Procedure Tolerated Well Pain Scale: 0-10 Numeric Is Patient Pain Free? Yes Yes WC - Visit Discharge Discharge Condition Stable Stable Ambulatory Status Wheelchair Wheelchair Transportation Private Auto Private Auto Accompanied by Facility Type Home Health Telephoned (if yes, spoke with:) Yes Additional Wound Wound debrided: Right lateral ankle Type of Debridement: Excisional debridement Anesthesia Used: 4% Lidocaine Solution Depth: Down to and including healthy tissue and in the subcutaneous layer Percentage of wound debrided: 100 Instrument Used: 5mm curette Tissue Removed: Slough and devitalized tissue Severity: Fat Layer Exposed Amount of bleeding with debridement: Mild Bleeding Controlled with: Pressure Patient tolerated procedure: Patient tolerated procedure well Additional Wound Wound debrided: Left lower extremity (lateral) Type of Debridement: Excisional debridement Anesthesia Used: 4% Lidocaine Solution Depth: Down to and including healthy tissue and in the subcutaneous layer Percentage of wound debrided: 100 Instrument Used: 5mm curette Tissue Removed: Slough and devitalized tissue Severity: Fat Layer Exposed Amount of bleeding with debridement: Mild Bleeding Controlled with: Pressure Patient tolerated procedure: Patient tolerated procedure well Assessment/Plan Assessment/Plan (1) Ulcer of right lower extremity with fat layer exposed: CODE(S): L97.912 - Non-pressure chronic ulcer of unspecified part of right lower leg with fat layer exposed (2) Ulcer of left lower extremity with fat layer exposed: CODE(S): L97.922 - Non-pressure chronic ulcer of unspecified part of 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 Debridement done as documented above, procedure was well-tolerated. 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 Yet to initiate use of CircAid's. Continue Aquacel extra with ABD or Keramax care over top. Change daily to twice daily depending on drainage. Has significant drainage from her ulcers. This will impede wound healing. Education provided today on how to wear and use the CircAid. Static 30 to 40 mmHg. May bring down to 20-30 if not tolerated. Elevate lower extremities when seated and in bed. Exercise as tolerated. Optimal diabetes control again recommended. Increase intake of protein rich foods, vitamin C and zinc. Her questions were answered and she was advised to call with any further questions or concerns. Follow-up in 1 week. This note was generated with [employer] software. It may contain incorrect words, spelling, and punctuation that were not noted in checking the note before signing.
== END 2021-03-26 23:59 ==
LOC: WC 11:00
PROVIDERS: Visit Provider Internal Medicine
DX: E11.622 Type 2 diabetes mellitus with other skin ulcer (principal); L97.312 Non-pressure chronic ulcer of right ankle with fat layer exposed; M79.89 Other specified soft tissue disorders; I89.0 Lymphedema, not elsewhere classified; L97.212 Non-pressure chronic ulcer of right calf with fat layer exposed; R60.0 Localized edema
CPT/HCPCS: 11042; 11045